=== PATIENT | female | born 1935 | race Caucasian/White ===

== ENCOUNTER 2018-10-16 14:19 | Observation (INO) ==
[2018-10-16] MEDS ORDERED: ACETAMINOPHEN 325 MG TAB PO STA (14:57)
--- NOTE | 2018-10-16 15:11 | Emergency Department Note ---
ED Provider Note CHIEF COMPLAINT: Right foot pain, fall HISTORY OF PRESENT ILLNESS: This 83-year-old femur patient presents to the emergency department, via wheelchair, accompanied by her daughter, complaining of swelling and pain in the right foot at rest and worse with weight bearing. The patient states she slipped in the mud and fell, twisting her right foot in an awkward position. She denies any head injury. She also reports abrasions in the bilateral knees. The patient denies any dizziness, nausea, vomiting, headache, or other symptoms prior to the fall. The patient rates the pain as sharp and 10/10. The patient has taken no medications for relief of the pain. The patient is not able to walk, but has not tried. No numbness or weakness. There is right ankle pain as well. There are no lacerations of the foot. The patient is able to move all of their without pain. No previous fracture to this foot. REVIEW OF SYSTEMS: A 6 system review of systems was completed with positives and pertinent negatives in the HPI. ALLERGIES: Crestor PHYSICAL EXAM: Vital Signs: Reviewed Nurse's notes, vital signs stable. GENERAL : This is an 83-year-old white female, in no acute distress, but appears in pain , well-developed, well-nourished. MUSCULOSKELATAL: There is no visual deformity of the right foot. There is no erythema or ecchymosis. There is no warmth. There is tenderness and swelling over the entire right foot and ankle. There is tenderness of the proximal tib-fib/knee, overlying the abrasion. There is also tenderness of the left knee on palpation. Patient does have full range of motion of the bilateral knees and ankle. There is no tenderness over the plantar fascia. The skin is intact and there are no lacerations or puncture wounds. Dorsalis pedis pulse 2+. Capillary refill less than 2 seconds. RADIOLOGY: XR tibia fibula RT 2V CLINICAL HISTORY: pain, fall COMPARISON: None FINDINGS: No acute fracture of the right tibia or fibula is identified. Talar dome is intact. IMPRESSION: No acute fracture of the right tibia or fibula. Electronically signed by: Andrew Farah M.D. 10/16/2018 3:32 PM XR knee LT 3V CLINICAL HISTORY: pain, fall COMPARISON: None FINDINGS: Alignment of the left knee is anatomic. There is no acute fracture. There is a trace joint effusion. There is moderate arthritis of the lateral compartment with joint space narrowing osteophytosis and sclerosis. There is mild to moderate patellofemoral compartment osteoarthritis. IMPRESSION: 1. No acute fracture. 2. Moderate osteoarthritis of the left knee. Electronically signed by: Andrew Farah M.D. 10/16/2018 3:31 PM XR foot RT min 3V routine CLINICAL HISTORY: pain, fall COMPARISON: None FINDINGS: There is slight lateral displacement of the base of the right second metatarsal with respect to the intermediate cuneiform. Oblique view demonstrates a probable fracture within the base of the third metatarsal as well as cortical irregularity within the base of the second metatarsal which favor fractures. Lateral view demonstrates associated midfoot soft tissue swelling. Moderate arthritis of the right first metatarsophalangeal joint is noted. IMPRESSION: Mild lateral displacement of the base of the right second metatarsal with respect to the intermediate cuneiform and suspected acute fractures of the bases of the second and third metatarsals. These findings raise the possibility of a Lisfranc injury. A CT of the right foot is recommended. Electronically signed by: Andrew Farah M.D. 10/16/2018 3:[address] OF THE RIGHT FOOT WITHOUT CONTRAST CLINICAL HISTORY: ?lis franc, fx on x-ray COMPARISON STUDY: Right foot radiographs performed earlier today. TECHNIQUE: Axial images of the right foot were obtained without IV contrast. Sagittal and coronal reconstructions were viewed. A dose lowering technique was utilized according to ALARA principles. Automated exposure control was utilized. FINDINGS: Alignment of the tibiotalar and subtalar joints is anatomic. There is right midfoot soft tissue swelling. Note is made of acute comminuted mildly displaced fractures of the dorsal aspects of the medial, intermediate and lateral cuneiform bones. In addition, there are acute mildly displaced fractures of the bases of the right second, third and fourth metatarsals. There is 3 mm of lateral displacement of the base of the right second metatarsal with respect to the intermediate cuneiform. In addition, there is an acute Displaced fracture of the dorsal aspect of the cuboid. IMPRESSION: 3 mm of lateral displacement of the base of the right second metatarsal with respect to the intermediate cuneiform and acute mildly displaced fractures of the medial, intermediate and lateral cuneiforms bones, the dorsal cuboid and bases of the right second, third and fourth metatarsals consistent with a Lis Franc fracture/dislocation injury. Electronically signed by: Andrew Farah M.D. 10/16/2018 4:28 PM EMERGENCY DEPARTMENT COURSE: I examined the patient. An X-ray of the left knee, right tib-fib, and right foot was reviewed by myself and radiologist and reveals a probable Lisfranc type of injury. Radiologist did recommend a CT scan at this time. CT scan of the right foot obtained without contrast and does confirm a Lisfranc fracture/dislocation injury. The patient was medicated while here in the ED with Tylenol. Due to the concern regarding the patient's age and ambulatory status, I did speak with the orthopedic surgeon street commissioner. He advised that likely, this patient would require surgery for a fusion in 1-2 weeks when the swelling subsides. He recommended a very bulky Mack splint and admission either to the hospital or rehab for placement until the patient is able to have surgery, as the family does not feel comfortable keeping the patient nonweightbearing at home due to house layout and living situation. I spoke with case management. They advised that I would not be able to get the patient placed into a rehab today, and that she would require admission. I did speak with the hospitalist. They recommended obtaining an IV and basic labs for admission, but were agreeable to evaluate the patient and admit for placement possibly tomorrow. I spoke with ARAMIS Fan. Please see her dictation regarding ongoing management of this patient. The patient was placed in a bulky posterior leg with a stirrup Ortho-Glass splint. The patient will be admitted to the floor nonweightbearing on the right lower extremity. Please see hospitalist dictation regarding ongoing management care. I attest that I have personally reviewed the patient's current medication list. Patient was found to have normal blood pressure on screening and does not require follow-up. Etiologies such as soft tissue injury, fracture, dislocation, neurovascular compromise, compartment syndrome, as well as others were entertained. DIAGNOSIS: Lisfranc fracture of the right foot, bilateral knee contusions, mechanical fall The chart was completed utilizing xzoops voice recognition software. Grammatical errors, random word insertions, pronoun errors, and incomplete sentences are an occasional consequence of this system due to software limitations, ambient noise, and hardware issues. Any formal questions or concerns about the content, text, or information contained within the body of this dictation should be directly addressed to the provider for clarification. Impression & Plan Lisfranc fracture, Contusion of knee and lower leg, Fall from slipping on mud Past Med/Surg History Medical History Lisfranc fracture Osteoarthritis Vertigo GERD (gastroesophageal reflux disease) Hypothyroidism (Chronic) Social History Feels Safe at Home: Yes Smoking Status: Never smoker Results & Data Vital Signs Vital Signs - 24 hr 10/16/18 14:29 10/16/18 16:05 10/16/18 17:33 Temperature 36.8 C Temperature Source Oral Sepsis Recent Fever Within 48 Hours No Sepsis New/Unexplained Change in Mental Status No Sepsis Action Taken by Nursing No Action Required Pulse Rate 86 Pulse Rate [Finger] 89 87 Respiratory Rate 20 18 18 Blood Pressure 189/109 H Blood Pressure [Left Arm] 174/111 H 195/100 H Blood Pressure Mean 135 Blood Pressure Mean [Left Arm] 132 131 Pulse Oximetry 95 98 98 Oxygen Delivery Method Room Air Room Air Room Air Laboratory Data Result diagrams: 10/16/18 17:20 10/16/18 17:20 Lab Results 10/16/18 10/16/18 Range/Units 17:20 17:20 WBC 10.51 (4.8-10.8) K/uL RBC 3.76 L (4.2-5.4) M/uL Hgb 12.2 (12.0-16.0) g/dL Hct 37.9 (37-47) % MCV 100.8 H (80-100) fL MCH 32.4 (25-34) pg MCHC 32.2 (32-36) g/dL RDW Std Deviation 47.3 H (36.4-46.3) fL RDW Coeff of Alea 12.9 (11.5-14.5) % Plt Count 191 (130-400) K/uL MPV 9.7 (7.4-10.4) fL Immature Gran % (Auto) 0.3 % Neut % (Auto) 68.5 % Lymph % (Auto) 17.8 % [place] % (Auto) 11.1 % Eos % (Auto) 2.0 % Baso % (Auto) 0.3 % Immature Gran # (Auto) 0.03 H (0.00-0.02) K/uL Neut # (Auto) 7.20 H (1.4-6.5) K/uL Lymph # (Auto) 1.87 (1.2-3.4) K/uL [place] # (Auto) 1.17 H (0.11-0.59) K/uL Eos # (Auto) 0.21 (0-0.5) K/uL Baso # (Auto) 0.03 (0-0.2) K/uL Sodium 141 (136-145) mmol/L Potassium 4.2 (3.5-5.1) mmol/L Chloride 107 (98-107) mmol/L Carbon Dioxide 28 (21-32) mmol/L Anion Gap 6.0 (3-11) BUN 20 H (7-18) mg/dl Creatinine 0.93 (0.6-1.2) mg/dl Est Cr Clr Drug Dosing 49.9 ml/min Est GFR ( Amer) 66.3 Est GFR (Non-Af Amer) 57.2 BUN/Creatinine Ratio 21.2 H (10-20) Glucose 99 (70-99) mg/dl Calcium 8.9 (8.5-10.1) mg/dl Administered Medications Discontinued Medications Acetaminophen (Tylenol) 650 mg PO NOW STA Stop: 10/16/18 14:58 Last Admin: 10/16/18 15:58 Dose: 325 mg Discharge Plan Visit Data Chief Complaint: Fall Stated Complaint: FELL, HURT RT FOOT AND B/L KNEES ED Provider: Henrik Lagos ED Midlevel Provider: Kiki Crabtree Discharge Problem: Lisfranc fracture, Contusion of knee and lower leg, Fall from slipping on mud Patient Disposition: Still a Patient Condition: Good
--- NOTE | 2018-10-16 15:32 | XRay Report ---
XR knee LT 3V CLINICAL HISTORY: pain, fall COMPARISON: None FINDINGS: Alignment of the left knee is anatomic. There is no acute fracture. There is a trace joint effusion. There is moderate arthritis of the lateral compartment with joint space narrowing osteophy tosis and sclerosis. There is mild to moderate patellofemoral compartment osteoarthritis. IMPRESSION: 1. No acute fracture. 2. Moderate osteoarthritis of the left knee. Electronically signed by: Andrew Farah M.D. 10/16/2018 3:31 PM
--- NOTE | 2018-10-16 15:33 | XRay Report ---
XR tibia fibula RT 2V CLINICAL HISTORY: pain, fall COMPARISON: None FINDINGS: No acute fracture of the right tibia or fibula is identified. Talar dome is intact. IMPRESSION: No acute fracture of the right tibia or fibula. Electronically signed by: Andrew Farah M.D. 10/16/2018 3:32 PM
--- NOTE | 2018-10-16 15:36 | XRay Report ---
XR foot RT min 3V routine CLINICAL HISTORY: pain, fall COMPARISON: None FINDINGS: There is slight lateral displacement of the base of the right second metatarsal with respe ct to the intermediate cuneiform. Oblique view demonstrates a probable fracture within the base of th e third metatarsal as well as cortical irregularity within the base of the second metatarsal which fa vor fractures. Lateral view demonstrates associated midfoot soft tissue swelling. Moderate arthritis of the right first metatarsophalangeal joint is noted. IMPRESSION: Mild lateral displacement of the base of the right second metatarsal with respect to the intermediate cuneiform and suspected acute fractures of the bases of the second and third metatarsals . These findings raise the possibility of a Lisfranc injury. A CT of the right foot is recommended. Electronically signed by: Andrew Farah M.D. 10/16/2018 3:35 PM
--- NOTE | 2018-10-16 16:30 | CT Scan Report ---
CT OF THE RIGHT FOOT WITHOUT CONTRAST CLINICAL HISTORY: ?gabrielle schmitz, fx on x-ray COMPARISON STUDY: Right foot radiographs performed earlier today. TECHNIQUE: Axial images of the right foot were obtained without IV contrast. Sagittal and coronal rec onstructions were viewed. A dose lowering technique was utilized according to ALARA principles. Autom ated exposure control was utilized. FINDINGS: Alignment of the tibiotalar and subtalar joints is anatomic. There is right midfoot soft ti ssue swelling. Note is made of acute comminuted mildly displaced fractures of the dorsal aspects of t he medial, intermediate and lateral cuneiform bones. In addition, there are acute mildly displaced fr actures of the bases of the right second, third and fourth metatarsals. There is 3 mm of lateral disp lacement of the base of the right second metatarsal with respect to the intermediate cuneiform. In ad dition, there is an acute Displaced fracture of the dorsal aspect of the cuboid. IMPRESSION: 3 mm of lateral displacement of the base of the right second metatarsal with respect to the intermediate cuneiform and acute mildly displaced fractures of the medial, intermediate and later al cuneiforms bones, the dorsal cuboid and bases of the right second, third and fourth metatarsals co nsistent with a Gabrielle Chalino fracture/dislocation injury. Electronically signed by: Andrew Farah M.D. 10/16/2018 4:28 PM
[2018-10-16 17:38] LABS: Basophils # (auto) 0.03 K/uL (0-0.2); Basophils % (auto) 0.3 %; Eosinophils # (auto) 0.21 K/uL (0-0.5); Hematocrit (blood only) 37.9 % (37-47); Hemoglobin 12.2 g/dL (12.0-16.0); Immature Granulocytes # (auto) 0.03 K/uL (0.00-0.02); Immature Granulocytes % (auto) 0.3 %; Lymphocytes # (auto) 1.87 K/uL (1.2-3.4); Lymphocytes % (auto) 17.8 %; Mean Corpuscular Hgb Conc 32.2 g/dL (32-36); Mean Corpuscular Volume 100.8 fL (80-100); Mean Platelet Volume 9.7 fL (7.4-10.4); Monocytes # (auto) 1.17 K/uL (0.11-0.59); Monocytes % (auto) 11.1 %; Neutrophils % (auto) 68.5 %; Platelet Count 191 K/uL (130-400); RDW Coefficient of Variation 12.9 % (11.5-14.5); RDW Standard Deviation 47.3 fL (36.4-46.3); Red Blood Count 3.76 M/uL (4.2-5.4); White Blood Count 10.51 K/uL (4.8-10.8)
[2018-10-16 17:55] LABS: BUN Creatinine Ratio 21.2 (10-20); Calcium 8.9 mg/dl (8.5-10.1); Creatinine Clr Calc Pharmacy 49.9 ml/min; Est GFR (African American) 66.3; Est GFR (Non-African American) 57.2; Potassium 4.2 mmol/L (3.5-5.1)
[2018-10-16] MEDS ORDERED: ALBUTEROL HFA 8 GM INHALER INH PRN (18:04)
--- NOTE | 2018-10-16 18:18 | History & Physical Report ---
Date of Service October 16, 2018 Assessment & Plan (1) Foot fracture, right: (2) Hypertension: (3) Hypothyroidism: (4) HLD (hyperlipidemia): (5) GERD (gastroesophageal reflux disease): (6) Osteoarthritis: (7) Vertigo: (8) DVT prophylaxis: History of Present Illness Primary Care Provider: Nancy Mackey 83 yo female c PMH HTN, GERD, Hypothyroidism, Osteoarthritis, Vertigo, Hard of Hearing, and HLD was getting out of orthodox van and planted her Right Foot in mud and slipped sustaining and R Lis Franc Fracture. She will be casted, ortho or podiatry to see, NWB, Acute rehab eval. Assessment and Plan R Foot Lis Ochoa Fracture HTN GERD HLD Vertigo OA Hypothyroid She will be casted, ortho or podiatry to see, NWB, Acute rehab eval. Continue outpatient meds, ATC tylenol, Oxy IR, IV Morphine. Treat BP if pain control doesn't bring it down. ROS-No Headache, No Visual Changes, No Nausea, No Vomiting, No Fever, No Chills , No Neck Pain or Stiffness, No Chest Pain, No Palpitations, No SOB, No PINEDO, No Cough, No Sputum, No Wheezing, No Abdominal Pain, No Diarrhea, No Hematemesis, No Hemoptysis, No Unexpected Weight Loss, No Flank pain, No Melena, No Hematochezia, No Frequency, No Urgency, No Burning, No Hematuria, No Rashes, No Diaphoresis. Appetite is Normal, R Foot pain and swelling Physical Exam Gen-AAO x 3, NAD, Afebrile, [place]-NCAT, EOMI, PERRLA, Anicteric Sclera, No Posterior Pharyngeal Erythema Neck-Supple, No JVD, No Thyromegaly, No Masses, No LAD, No Bruits Lungs-Clear to Auscultation Bilaterally, No Rales, No Rhonchi, No Wheezing, No Crepitus Chest-No S4, +S1, +S2, No S3, No Murmurs, No Rubs, No Gallops, No Ectopy Abdomen-Soft, Bowel Sounds Present, Non Tender, Non Distended, No Hepatomegaly, No Splenomegaly, No Palpable Masses, No Rebound, No Rigidity, No Guarding Musculoskeletal-Full Range of Motion Bilaterally, No CVAT Extremities-No Cyanosis, No Clubbing, +Edema R Foot Nuero-Cranial Nerves II-XII grossly intact, Motor WNL, DTRs WNL, Strength WNL, Non Focal Psych-Normal Mood PMH-HTN, GERD, Hypothyroidism, Osteoarthritis, Vertigo, Hard of Hearing, and HLD PSH-Hernia repair R Inguinal, Cataract Soc-No Tob/Etoh, , Lives c Son, Housewife FH-M of Sepsis at 91, F of Lung [place], [place], 15 Brothers and sisters ( No MIs, CVAs, or Cancer, 1 Son healthy, 2 Daughters, 1 c DM, other 2 healthy. Allergies rosuvastatin Allergy (Severe, Verified 10/16/18 15:38) ITCHY Height/Weight/Isolation Height 5 ft 7 in Weight 77 kg Chemistry 10/16/18 17:20 Sodium 141 Potassium 4.2 Chloride 107 Carbon Dioxide 28 Anion Gap 6.0 BUN 20 H Creatinine 0.[address] Foot-IMPRESSION: 3 mm of lateral displacement of the base of the right second metatarsal with respect to the intermediate cuneiform and acute mildly displaced fractures of the medial, intermediate and lateral cuneiforms bones, the dorsal cuboid and bases of the right second, third and fourth metatarsals consistent with a Lis Franc fracture/dislocation injury. IMPRESSION: No acute fracture of the right tibia or fibula IMPRESSION: 1. No acute fracture. 2. Moderate osteoarthritis of the left knee. Foot XR-IMPRESSION: Mild lateral displacement of the base of the right second metatarsal with respect to the intermediate cuneiform and suspected acute fractures of the bases of the second and third metatarsals. These findings raise the possibility of a Lis Franc injury. A CT of the right foot is recommended. Allergies Allergy/AdvReac Type Severity Reaction Status Date / Time rosuvastatin Allergy Severe ITCHY Verified 10/16/18 15:38 Home Medications Home Medications Medication Instructions Recorded Confirmed Type albuterol sulfate [Ventolin HFA] 2 puff INHALATION UD PRN 10/16/18 10/16/18 History levothyroxine 50 mcg PO DAILY 10/16/18 10/16/18 History lisinopril 5 mg PO DAILY 10/16/18 10/16/18 History meclizine 25 mg PO Q8H PRN 10/16/18 10/16/18 History omeprazole 20 mg PO DAILY 10/16/18 10/16/18 History Past Med/Surg History Social History Feels Safe at Home: Yes Smoking Status: Never smoker Physical Exam 2 Vital Signs (Past 24 Hours): Last Vital Signs Temp 36.8 C 10/16/18 14:29 Pulse 87 10/16/18 17:33 Resp 18 10/16/18 17:33 BP 195/100 H 10/16/18 17:33 Pulse Ox 98 10/16/18 17:33
--- NOTE | 2018-10-16 19:05 | Emergency Department Note ---
Entered by Shane Acosta acting as a scribe for Henrik Lagos MD ED Visit Note The patient was seen and examined by myself in conjunction with Kiki Nguyễn. I agree with the history, physical and findings as documented. Please see the note for disposition and details. . The scribe's documentation has been prepared under my direction and personally reviewed by me in its entirety. I confirm that the note above accurately reflects all work, treatment, procedures, and medical decision making performed by me.
[2018-10-16] MEDS ORDERED: MoRPHine SULFATE 4 MG/ML 1 ML CARP\\VIAL IV PRN (19:21)
[2018-10-16] MEDS ORDERED: OXYCODONE HCL IR 5 MG TAB (IMMEDIATE RELEASE) PO PRN (19:21)
[2018-10-16] MEDS ORDERED: MECLIZINE HCL 25 MG TAB PO PRN (19:21)
[2018-10-16] MEDS ORDERED: ONDANSETRON INJ 2 MG/ML 2 ML VIAL IV PRN (19:21)
[2018-10-16] MEDS ORDERED: POLYETHYLENE (MIRALAX) 17 GM PACK PO PRN (19:21)
[2018-10-16] MEDS: PANTOprazole 40 MG TAB PO SCH (19:58)
[2018-10-16] MEDS: LISINOPRIL 5 MG TAB PO SCH (19:58)
[2018-10-16] MEDS: ACETAMINOPHEN 500 MG TAB PO SCH (19:59)
[2018-10-16 20:00] LABS: INR 1.1 (0.9-1.1); Partial Thromboplastin Time 26.6 Seconds (21.0-31.0); Prothrombin Time 11.3 Seconds (9.0-12.0)
[2018-10-16] MEDS: HydrALAZINE HCL 20 MG/ML VIAL IV PRN (23:37)
[2018-10-17] MEDS: HEPARIN SOD 5,000 UNIT/0.5 ML VIAL SQ SCH ×3 (00:22→21:37)
[2018-10-17] MEDS: LEVOTHYROXINE SODIUM 50 MCG TABLET PO SCH (05:34)
[2018-10-17 06:27] LABS: Hematocrit (blood only) 37.3 % (37-47); Hemoglobin 12.3 g/dL (12.0-16.0); Mean Corpuscular Volume 99.7 fL (80-100); Mean Platelet Volume 9.5 fL (7.4-10.4); Platelet Count 186 K/uL (130-400); RDW Coefficient of Variation 12.9 % (11.5-14.5); Red Blood Count 3.74 M/uL (4.2-5.4); White Blood Count 7.27 K/uL (4.8-10.8)
[2018-10-17 06:56] LABS: BUN Creatinine Ratio 18.6 (10-20); Calcium 8.5 mg/dl (8.5-10.1); Creatinine Clr Calc Pharmacy 60.6 ml/min; Est GFR (African American) 71.9; Potassium 3.6 mmol/L (3.5-5.1)
[2018-10-17] MEDS: ACETAMINOPHEN 500 MG TAB PO SCH ×4 (08:07→21:37)
[2018-10-17] MEDS: LISINOPRIL 5 MG TAB PO SCH (08:08)
[2018-10-17] MEDS: PANTOprazole 40 MG TAB PO SCH (08:08)
[2018-10-17] MEDS: HydrALAZINE HCL 20 MG/ML VIAL IV PRN (08:09)
--- NOTE | 2018-10-17 10:29 | Anesthesiology Consultation ---
Date of Service October 17, 2018 Assessment & Plan Chart Review Chart Review: Acceptable Risk for Surgery and Patient NOT seen in Pre Admission Testing Will order a preop EKG. Consults Requested none History Surgery Operation Date: 10/17/18 07:00 Proposed Procedures p Closed Reduction Possible Open Reduction Mid Foot Fracture Right - Shyla E HOLLY Vivar Height/Weight Height: 80 ft 6 in Weight: 77 kg Allergies Allergy/AdvReac Type Severity Reaction Status Date / Time rosuvastatin Allergy Severe ITCHY Verified 10/16/18 15:38 Medications Home Medications Medication Instructions Recorded Confirmed Last Taken albuterol sulfate [Ventolin HFA] 2 puff INHALATION UD PRN 10/16/18 10/16/18 Unknown levothyroxine 50 mcg PO DAILY 10/16/18 10/16/18 Unknown lisinopril 5 mg PO DAILY 10/16/18 10/16/18 Unknown meclizine 25 mg PO Q8H PRN 10/16/18 10/16/18 Unknown omeprazole 20 mg PO DAILY 10/16/18 10/16/18 Unknown Active Medications Generic Name Dose Route Start Last Admin Trade Name Freq PRN Reason Stop Dose Admin Acetaminophen 500 mg 10/16/18 20:00 10/17/18 08:07 Tylenol PO 11/15/18 19:59 500 mg Q4HWA ALENA Administration Heparin Sodium (Porcine) 5,000 units 10/16/18 21:00 10/17/18 08:07 Heparin Sodium (Porcine) SQ 11/15/18 20:59 Not Given Q12 ALENA Hydralazine HCl 5 mg 10/16/18 20:45 10/17/18 08:09 Hydralazine Hcl IV 11/15/18 20:44 5 mg Q6H PRN Administration Hypertension Levothyroxine Sodium 50 mcg 10/17/18 06:30 10/17/18 05:34 Synthroid PO 11/16/18 06:29 50 mcg DAILYBB ALENA Administration Lisinopril 5 mg 10/16/18 19:21 10/17/18 08:08 Zestril PO 11/15/18 19:20 5 mg DAILY ALENA Administration Pantoprazole Sodium 40 mg 10/16/18 19:30 10/17/18 08:08 Protonix PO 11/15/18 19:29 40 mg DAILY ALENA Administration Past Medical History Medical History Lisfranc fracture Osteoarthritis Vertigo GERD (gastroesophageal reflux disease) Hypothyroidism (Chronic) Past Surgical History Surgical History History of cataract surgery Hx of inguinal hernia surgery Social History Smoking Status: Former smoker Hx Alcohol Use: No Hx Substance Use: No Physical Exam Vital Signs Last Vital Signs Temp 36.8 C 10/17/18 07:45 Pulse 92 H 10/17/18 07:45 Resp 20 10/17/18 07:45 BP 165/90 H 10/17/18 08:12 Pulse Ox 94 10/17/18 07:45 Testing Electrocardiogram EKG 08/06/2017: Sinus bradycardia Nonspecific T wave abnormality Abnormal ECG When compared with ECG of 05-AUG-2017 11:26, Nonspecific T wave abnormality, worse in Lateral leads Confirmed by Piotr Barnes ([id number]) on 08/06/2017 3:34:26 PM Echocardiogram Date: 08/06/17 STRESS STUDY: Normal pharmacologic stress echocardiogram. No echocardiographic or ECG evidence of myocardial ischemia having achieved heart rate adequate for diagnostic purposes. -- Conclusions -- STRESS STUDY: Normal pharmacologic stress echocardiogram. No echocardiographic evidence of myocardial ischemia having achieved heart rate adequate for diagnostic purposes. Mild equivocal stress EKG changes were noted as described below. No symptoms suggestive of angina were induced. The heart rate and BP responses to pharmacologic stress were appropriate. Laboratory Results 10/17/18 06:16 10/17/18 06:16 PT 11.3 Seconds (9.0-12.0) 10/16/18 17:20 INR 1.1 (0.9-1.1) 10/16/18 17:20 APTT 26.6 Seconds (21.0-31.0) 10/16/18 17:20
--- NOTE | 2018-10-17 11:11 | Consultation Report ---
DATE OF CONSULTATION: 10/17/2018 HISTORY OF PRESENT ILLNESS: An 83-year-old female is seen at bedside at the request of the hospitalist. The patient notes on Wednesday while getting out of a hoahaoism van, when she planted her right foot, she got stuck in the mud and slipped. She had instant pain in the right foot and knees secondary to the fall and was seen at [facility] ER. The patient was admitted due to a Lisfranc joint fracture of her right foot. She notes her pain is focal on the mid foot on the right, currently resting comfortably in bed and is nonambulatory on the right side. PAST SURGICAL HISTORY: Hernia. PAST MEDICAL HISTORY: Hypertension, GERD, hypothyroid, osteoarthritis, vertigo. MEDICATIONS: Per chart. ALLERGIES: CRESTOR. SOCIAL HISTORY: She currently lives with her son and is . PHYSICAL EXAMINATION: VITAL SIGNS: Afebrile. LOWER EXTREMITY VASCULAR: Digital cap refill is immediate. Digits are swollen with ecchymosis noted dorsally. DERMATOLOGIC: The right foot is currently bandaged, in a cast. NEUROLOGICAL: Sensation of distal toes intact per [place] monofilament. MUSCULOSKELETAL: Pain precludes reliable exam. IMAGING: CT scan shows a 3 mm lateral displacement of the right second metatarsal. It also shows a dorsal displacement of the cuboid and fractures involving the entire mid foot. IMPRESSION: Multiple mid foot fractures, right secondary to fall with dislocation of Lisfranc joint. TREATMENT: Reviewed conservative treatment options; however, due to displacement, I recommended closed reduction with period of nonweightbearing over casting and immobilization. The patient has a few comorbidities other than her age and is quite active with her hoahaoism. The patient is amenable to closed, possible open, reduction. Reviewed procedures, risks and complication for closed, possible open, reduction with pinning of multiple mid foot fractures, Lisfranc joint on the right. This will be performed under general anesthesia as an inpatient at the hospital. Procedure, risks and complications were fully reviewed with the patient. Consent form was signed and all of the patient's questions were answered. Complications were discussed in detail with the patient including pain, infection, swelling that may not be excessive, pins and needles feeling, numbness, metatarsalgia, excessive bleeding, delay or nonhealing bone, delay or nonhealing of skin, enlarged scar, failure of the procedure, reoccurrence or worsening condition, which may not require further surgery, adverse reaction to anesthesia, allergic reaction to suture or other implant material, loss of toe, foot, or leg, flail toe, stiff toe, short toe, elevated toe, transfer lesion or callus, peripheral nerve complications such as phlebitis, damage to nerves or vascular structures. The patient will be required to be nonweightbearing for 8-12 weeks followed by weightbearing cast immobilization and there is a high degree that she may need a fusion in the future, most likely will need orthotics and/or AFO for a lifetime due to the severe nature of the trauma with or without surgery. This was reviewed at length. The patient stated she understood, consent form was signed. This was witnessed by nursing staff at bedside. Verbal instructions, postop instructions were given. Recommended admission to a long-term care facility due to difficulty staying nonweightbearing postoperatively. We will consult geriatric social work professor for this. 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 for repair of right midfoot fractures.
--- NOTE | 2018-10-17 11:43 | Hospitalist Progress Note ---
Date of Service October 17, 2018 Assessment & Plan (1) Foot fracture, right: (2) Hypertension: (3) Hypothyroidism: (4) HLD (hyperlipidemia): (5) GERD (gastroesophageal reflux disease): (6) Osteoarthritis: (7) Vertigo: (8) DVT prophylaxis: Subjective 83 yo female c PMH HTN, GERD, Hypothyroidism, Osteoarthritis, Vertigo, Hard of Hearing, and HLD was getting out of uats[employer] van and planted her Right Foot in mud and slipped sustaining and R Lis Franc Fracture. She will be casted, ortho or podiatry to see, NWB, Acute rehab eval. Assessment and Plan R Foot Lis Ochoa Fracture HTN GERD HLD Vertigo OA Hypothyroid Podiatry taking to OR today, SNF on DC ROS-No Headache, No Visual Changes, No Nausea, No Vomiting, No Fever, No Chills , No Neck Pain or Stiffness, No Chest Pain, No Palpitations, No SOB, No PINEDO, No Cough, No Sputum, No Wheezing, No Abdominal Pain, No Diarrhea, No Hematemesis, No Hemoptysis, No Unexpected Weight Loss, No Flank pain, No Melena, No Hematochezia, No Frequency, No Urgency, No Burning, No Hematuria, No Rashes, No Diaphoresis. Appetite is Normal, R Foot sore Physical Exam Gen-AAO x 3, NAD, Afebrile, Pleasant Head-NCAT, EOMI, PERRLA, Anicteric Sclera, No Posterior Pharyngeal Erythema Neck-Supple, No JVD, No Thyromegaly, No Masses, No LAD, No Bruits Lungs-Clear to Auscultation Bilaterally, No Rales, No Rhonchi, No Wheezing, No Crepitus Chest-No S4, +S1, +S2, No S3, No Murmurs, No Rubs, No Gallops, No Ectopy Abdomen-Soft, Bowel Sounds Present, Non Tender, Non Distended, No Hepatomegaly, No Splenomegaly, No Palpable Masses, No Rebound, No Rigidity, No Guarding Musculoskeletal-Full Range of Motion Bilaterally, No CVAT Extremities-No Cyanosis, No Clubbing, R foot Casted Nuero-Cranial Nerves II-XII grossly intact, Motor WNL, DTRs WNL, Strength WNL, Non Focal Psych-Normal Mood Physical Exam 2 Vital Signs (Past 24 Hours): Last Vital Signs Temp 36.8 C 10/17/18 07:45 Pulse 92 H 10/17/18 07:45 Resp 20 10/17/18 07:45 BP 137/81 10/17/18 11:06 Pulse Ox 94 10/17/18 07:45 Results & Data Laboratory Results Current Diagnoses Hypothyroidism, unspecified (10/16/18) Hyperlipidemia, unspecified (10/16/18) Essential (primary) hypertension (10/16/18) Gastro-esophageal reflux disease without esophagitis (10/16/18) Unspecified osteoarthritis, unspecified site (10/16/18) Dizziness and giddiness (10/16/18) Unspecified fracture of right foot, initial encounter for closed fracture (10/16) Allergies rosuvastatin Allergy (Severe, Verified 10/16/18 15:38) ITCHY Height/Weight/Isolation Height 80 ft 6 in Weight 77 kg Chemistry 10/16/18 10/17/18 17:20 06:16 Sodium 141 139 Potassium 4.2 3.6 Chloride 107 106 Carbon Dioxide 28 27 Anion Gap 6.0 6.0 BUN 20 H 16 Creatinine 0.93 0.87 Glucose 99 103 H
[2018-10-17] MEDS ORDERED: fentaNYL citrate 100 MCG/2 ML VIAL ONE (14:17)
[2018-10-17] MEDS ORDERED: MIDAZOLAM HCL 1 MG/ML 2ML VIAL ONE (14:17)
[2018-10-17] MEDS ORDERED: BACITRACIN OINT 15 GM TUBE ONE (15:19)
[2018-10-17] MEDS ORDERED: DEXAMETHASONE SOD INJ 4 MG/ML VIAL ONE ×2 (15:19→17:10)
[2018-10-17] MEDS ORDERED: ROPIVACAINE 0.5% 5 MG/ML 30 ML VIAL ONE (16:24)
[2018-10-17] MEDS ORDERED: fentaNYL citrate 100 MCG/2 ML VIAL IV PRN (16:26)
[2018-10-17] MEDS ORDERED: ATROPINE SULFATE 0.1 MG/ML 10ML SYR IV PRN (16:26)
[2018-10-17] MEDS ORDERED: ePHEDrine sulfate 50 MG/ML AMP IV PRN (16:26)
[2018-10-17] MEDS ORDERED: ONDANSETRON INJ 2 MG/ML 2 ML VIAL IV PRN (16:26)
[2018-10-17] MEDS ORDERED: CEFAZOLIN 2,000 MG/15 ML IV PUSH IV ONE (16:41)
[2018-10-17] MEDS ORDERED: ePHEDrine sulfate 50 MG/ML SYR ONE (17:10)
[2018-10-17] MEDS ORDERED: PHENYLEPHRINE 100MCG/ML 5ML SYR ONE (17:10)
[2018-10-17] MEDS ORDERED: PROPOFOL IV EMULSION 10 MG/ML 20 ML VIAL IV ONE (17:10)
[2018-10-17] MEDS ORDERED: LIDOCAINE HCL 2% 2 ML VIAL/AMP(20MG/ML) INFIL ONE (17:10)
[2018-10-17] MEDS ORDERED: ONDANSETRON INJ 2 MG/ML 2 ML VIAL ONE (17:10)
--- NOTE | 2018-10-17 18:49 | Operative Report ---
Post Operative Report Pre & Post Diagnosis Operation Date: 10/17/18 07:00 Pre-Op Diagnosis: Multiple mid foot fractures, right Post-Op Diagnosis: Multiple mid foot fractures, right Procedure Operation Date: 10/17/18 07:00 Actual Procedures p Closed Reduction and pinning of Mid Foot Fracture Right(Right) - Shyla Vivar DPM Surgeon Shyla Vivar DPM Lock Operator Dr. Soham Avendaño Estimated Blood Loss 0 Findings Consistent with Post-Op Diagnosis Specimens none Description of Procedure Closed reduction multiple midfoot fractures with relocation Lis Franc joint Right I attest to the content of the Intraoperative Record and any orders documented therein. Any exceptions are noted below.
--- NOTE | 2018-10-17 18:56 | Fluoroscopy Report ---
INTRAOPERATIVE RADIOGRAPHS CLINICAL HISTORY: Foot surgery. Fluoroscopy time: 45 seconds. FINDINGS: 7 spot fluoroscopic views of the right forefoot are correlated with radiographs dated 2018. 4 pins have been placed within the midfoot these transfix the first and second tarsometatarsal joints, the fifth tarsometatarsal joint, and the distal tarsal row. The orthopedic hardware appears i ntact. IMPRESSION: Postoperative changes as above. See operative report for detailed findings. Electronically signed by: Osvaldo Cruz M.D. 10/17/2018 6:54 PM
--- NOTE | 2018-10-17 19:29 | Anesthesiology Progress Note ---
Date of Service October 17, 2018 Anesthesia Post Procedure Vital Signs Vital Signs: Temp Pulse Pulse Resp BP BP Pulse Ox 10/17/18 19:25 36.4 C L 82 16 132/71 96 10/17/18 19:15 79 16 140/65 98 10/17/18 19:05 76 16 146/73 H 98 10/17/18 18:55 75 16 134/63 98 10/17/18 18:49 36.3 C L 85 16 154/64 H 97 10/17/18 16:14 37.2 C 98 H 16 166/91 H 93 10/17/18 15:07 37.0 C 95 H 18 159/75 H 92 10/17/18 12:00 36.8 C 86 19 158/90 H 94 10/17/18 11:06 137/81 10/17/18 08:12 165/90 H 10/17/18 07:45 36.8 C 92 H 20 182/106 H 94 10/17/18 00:21 167/82 H 10/16/18 23:25 36.9 C 75 16 195/84 H 200/91 H 91 10/16/18 21:37 76 159/87 H 10/16/18 20:45 75 185/104 H 10/16/18 20:35 84 185/102 H 10/16/18 19:45 36.9 C 82 16 182/90 H 94 Pain Intensity Right Lower Leg: Pain Intensity: 5 Notes Mental Status: alert / awake / arousable Patient Amnestic to Procedure: Yes Nausea / Vomiting: adequately controlled Pain: adequately controlled Airway Patency, RR, SpO2: stable & adequate BP & HR: stable & adequate Hydration State: stable & adequate Anesthetic Complications: no major complications apparent
[2018-10-18] MEDS: LEVOTHYROXINE SODIUM 50 MCG TABLET PO SCH (05:22)
[2018-10-18 07:09] LABS: Hematocrit (blood only) 35.6 % (37-47); Hemoglobin 11.6 g/dL (12.0-16.0); Mean Corpuscular Hgb Conc 32.6 g/dL (32-36); Mean Corpuscular Volume 100.3 fL (80-100); Mean Platelet Volume 9.9 fL (7.4-10.4); Platelet Count 185 K/uL (130-400); RDW Coefficient of Variation 12.9 % (11.5-14.5); RDW Standard Deviation 47.7 fL (36.4-46.3); Red Blood Count 3.55 M/uL (4.2-5.4); White Blood Count 7.88 K/uL (4.8-10.8)
[2018-10-18 07:42] LABS: BUN Creatinine Ratio 19.7 (10-20); Calcium 8.4 mg/dl (8.5-10.1); Creatinine Clr Calc Pharmacy 46.9 ml/min; Est GFR (African American) 61.5; Est GFR (Non-African American) 53.1
--- NOTE | 2018-10-18 08:08 | Operative Report ---
DATE OF OPERATION: 10/17/2018 SURGEON: Shyla Vivar DPM MORTGAGE LOAN COMPUTATION CLERK: Soham Avendaño DPM PREOPERATIVE DIAGNOSES: 1. Lisfranc's joint with dislocation, right. 2. Multiple mid foot fractures with displacement, right foot. 3. History of injury 10/16/2018 right foot. POSTOPERATIVE DIAGNOSES: 1. Lisfranc's joint with dislocation, right. 2. Multiple mid foot fractures with displacement, right foot. 3. History of injury 10/16/2018 right foot. ANESTHESIA: General with regional field block. PROCEDURES: 1. Closed reduction multiple mid foot fractures of the right 2nd, 3rd, 4th, and cuboid tarsometatarsal joints. 2. Reduction Lisfranc joint, right foot. HEMOSTASIS: None. MATERIALS: 2.0 Steinmann pins x4. CONDITION: The patient tolerated the procedure and anesthesia well without complications, transferred to recovery room with vital signs stable and neurovascular status intact. DESCRIPTION OF PROCEDURE: The patient was brought to the OR and placed on the OR table in supine position. Upon completion of general anesthesia and regional field block by the anesthesia department, the right extremity was scrubbed, prepped, and draped in the usual aseptic fashion. Attention was directed to the right foot. There was placed in finger traps. The extremity was scrubbed, prepped and draped in the usual aseptic fashion after well-padded tourniquet was then placed. Arterial Doppler was placed over the mid foot to outline the dorsalis pedis pulse. This was avoided during the pinning cycle. Pedal pulses were difficult to palpate due to the amount of edema and ecchymosis secondary to the fracture swelling that was present. At this time, the second metatarsal was reduced while it was in the finger traps and a 2.0 Steinmann pin was taken from the second metatarsal into the medial cuneiform. This was reduced. First metatarsal medial cuneiform and the fifth were also reduced reducing the fractures of the second, third, fourth and in good anatomic alignment. The tarsal joints were also relocated with a Steinmann pin running from medial to lateral. All neurovascular structures were preserved Dr. Avendaño was present throughout the procedure to assist. The tourniquet was then placed; however, not inflated throughout the case. A dry sterile compressive dressing consisting of Xeroform, 4 x 4s, Betadine ointment over the pin sites, Webril, and a well-padded BK splint were applied to the right lower extremity. The patient tolerated the procedure and anesthesia well without complications. The patient was transferred to recovery room with vital signs stable and neurovascular status intact. I attest to the content of the Intraoperative Record and any orders documented therein. Any exception s are noted below.
--- NOTE | 2018-10-18 08:49 | Anesthesiology Progress Note ---
Date of Service October 18, 2018 Anesthesia Post Procedure Vital Signs Vital Signs: Temp Pulse Pulse Resp BP BP Pulse Ox 10/18/18 06:51 36.5 C 77 18 126/73 93 10/18/18 04:00 36.4 C L 76 17 134/74 93 10/17/18 22:38 36.4 C L 85 18 146/74 H 92 10/17/18 21:30 36.7 C 86 18 119/71 97 10/17/18 20:31 36.5 C 89 18 124/70 94 10/17/18 20:00 36.4 C L 85 20 153/89 H 96 10/17/18 19:30 36.7 C 79 18 149/79 H 97 10/17/18 19:25 36.4 C L 82 16 132/71 96 10/17/18 19:15 79 16 140/65 98 10/17/18 19:05 76 16 146/73 H 98 10/17/18 18:55 75 16 134/63 98 10/17/18 18:49 36.3 C L 85 16 154/64 H 97 10/17/18 16:14 37.2 C 98 H 16 166/91 H 93 10/17/18 15:07 37.0 C 95 H 18 159/75 H 92 10/17/18 12:00 36.8 C 86 19 158/90 H 94 10/17/18 11:06 137/81 Notes Mental Status: alert / awake / arousable and participated in evaluation Nausea / Vomiting: adequately controlled Pain: adequately controlled Airway Patency, RR, SpO2: stable & adequate BP & HR: stable & adequate Hydration State: stable & adequate
[2018-10-18] MEDS: ACETAMINOPHEN 500 MG TAB PO SCH ×4 (09:00→20:29)
[2018-10-18] MEDS: HEPARIN SOD 5,000 UNIT/0.5 ML VIAL SQ SCH ×2 (09:30→20:30)
[2018-10-18] MEDS: LISINOPRIL 5 MG TAB PO SCH (09:32)
[2018-10-18] MEDS: PANTOprazole 40 MG TAB PO SCH (10:16)
--- NOTE | 2018-10-18 10:44 | Discharge Summary ---
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 She will be casted, ortho or podiatry to see, NWB, Acute rehab eval. Assessment and Plan R Foot Lis Franc Fracture HTN GERD HLD Vertigo OA Hypothyroid DC today to SNF when bed available, NWB R Foot 12 weeks or as per Podiatry. ROS-No Headache, No Visual Changes, No Nausea, No Vomiting, No Fever, No Chills , No Neck Pain or Stiffness, No Chest Pain, No Palpitations, No SOB, No PINEDO, No Cough, No Sputum, No Wheezing, No Abdominal Pain, No Diarrhea, No Hematemesis, No Hemoptysis, No Unexpected Weight Loss, No Flank pain, No Melena, No Hematochezia, No Frequency, No Urgency, No Burning, No Hematuria, No Rashes, No Diaphoresis. Appetite is Normal, R Foot pain and swelling Physical Exam Gen-AAO x 3, NAD, Afebrile, Pleasant Head-NCAT, EOMI, PERRLA, Anicteric Sclera, No Posterior Pharyngeal Erythema Neck-Supple, No JVD, No Thyromegaly, No Masses, No LAD, No Bruits Lungs-Clear to Auscultation Bilaterally, No Rales, No Rhonchi, No Wheezing, No Crepitus Chest-No S4, +S1, +S2, No S3, No Murmurs, No Rubs, No Gallops, No Ectopy Abdomen-Soft, Bowel Sounds Present, Non Tender, Non Distended, No Hepatomegaly, No Splenomegaly, No Palpable Masses, No Rebound, No Rigidity, No Guarding Musculoskeletal-Full Range of Motion Bilaterally, No CVAT Extremities-No Cyanosis, No Clubbing, +Edema R Foot Nuero-Cranial Nerves II-XII grossly intact, Motor WNL, DTRs WNL, Strength WNL, Non Focal Psych-Normal Mood PMH-HTN, GERD, Hypothyroidism, Osteoarthritis, Vertigo, Hard of Hearing, and HLD PSH-Hernia repair R Inguinal, Cataract Soc-No Tob/Etoh, , Lives c Son, Housewife FH-M of Sepsis at 91, F of Lung [place], [place], 15 Brothers and sisters ( No MIs, CVAs, or Cancer, 1 Son healthy, 2 Daughters, 1 c DM, other 2 healthy. Allergies rosuvastatin Allergy (Severe, Verified 10/16/18 15:38) ITCHY Height/Weight/Isolation Height 5 ft 7 in Weight 77 kg Chemistry 10/16/18 17:20 Sodium 141 Potassium 4.2 Chloride 107 Carbon Dioxide 28 Anion Gap 6.0 BUN 20 H Creatinine 0.[address] Foot-IMPRESSION: 3 mm of lateral displacement of the base of the right second metatarsal with respect to the intermediate cuneiform and acute mildly displaced fractures of the medial, intermediate and lateral cuneiforms bones, the dorsal cuboid and bases of the right second, third and fourth metatarsals consistent with a Lis Franc fracture/dislocation injury. IMPRESSION: No acute fracture of the right tibia or fibula IMPRESSION: 1. No acute fracture. 2. Moderate osteoarthritis of the left knee. Foot XR-IMPRESSION: Mild lateral displacement of the base of the right second metatarsal with respect to the intermediate cuneiform and suspected acute fractures of the bases of the second and third metatarsals. These findings raise the possibility of a Lis Franc injury. A CT of the right foot is recommended. Admission Exam Per Admitting Provider ROS-No Headache, No Visual Changes, No Nausea, No Vomiting, No Fever, No Chills , No Neck Pain or Stiffness, No Chest Pain, No Palpitations, No SOB, No PINEDO, No Cough, No Sputum, No Wheezing, No Abdominal Pain, No Diarrhea, No Hematemesis, No Hemoptysis, No Unexpected Weight Loss, No Flank pain, No Melena, No Hematochezia, No Frequency, No Urgency, No Burning, No Hematuria, No Rashes, No Diaphoresis. Appetite is Normal, R Foot pain and swelling Physical Exam Gen-AAO x 3, NAD, Afebrile, Pleasant Head-NCAT, EOMI, PERRLA, Anicteric Sclera, No Posterior Pharyngeal Erythema Neck-Supple, No JVD, No Thyromegaly, No Masses, No LAD, No Bruits Lungs-Clear to Auscultation Bilaterally, No Rales, No Rhonchi, No Wheezing, No Crepitus Chest-No S4, +S1, +S2, No S3, No Murmurs, No Rubs, No Gallops, No Ectopy Abdomen-Soft, Bowel Sounds Present, Non Tender, Non Distended, No Hepatomegaly, No Splenomegaly, No Palpable Masses, No Rebound, No Rigidity, No Guarding Musculoskeletal-Full Range of Motion Bilaterally, No CVAT Extremities-No Cyanosis, No Clubbing, +Edema R Foot Nuero-Cranial Nerves II-XII grossly intact, Motor WNL, DTRs WNL, Strength WNL, Non Focal Psych-Normal Mood Principal Diagnosis R Foot Lis Franc Fracture s/p repair 10/[address] Vivar HTN GERD HLD Vertigo OA Hypothyroid Discharge Exam ROS-No Headache, No Visual Changes, No Nausea, No Vomiting, No Fever, No Chills , No Neck Pain or Stiffness, No Chest Pain, No Palpitations, No SOB, No PINEDO, No Cough, No Sputum, No Wheezing, No Abdominal Pain, No Diarrhea, No Hematemesis, No Hemoptysis, No Unexpected Weight Loss, No Flank pain, No Melena, No Hematochezia, No Frequency, No Urgency, No Burning, No Hematuria, No Rashes, No Diaphoresis. Appetite is Normal, Sore foot, Bearable Physical Exam Gen-AAO x 3, NAD, Afebrile Head-NCAT, EOMI, PERRLA, Anicteric Sclera, No Posterior Pharyngeal Erythema Neck-Supple, No JVD, No Thyromegaly, No Masses, No LAD, No Bruits Lungs-Clear to Auscultation Bilaterally, No Rales, No Rhonchi, No Wheezing, No Crepitus Chest-No S4, +S1, +S2, No S3, No Murmurs, No Rubs, No Gallops, No Ectopy Abdomen-Soft, Bowel Sounds Present, Non Tender, Non Distended, No Hepatomegaly, No Splenomegaly, No Palpable Masses, No Rebound, No Rigidity, No Guarding Musculoskeletal-Full Range of Motion Bilaterally, No CVAT Extremities-No Cyanosis, No Clubbing, No Edema, Foot casted Nuero-Cranial Nerves II-XII grossly intact, Motor WNL, DTRs WNL, Strength WNL, Non Focal Psych-Normal Mood Discharge Data Allergies Allergy/AdvReac Type Severity Reaction Status Date / Time rosuvastatin Allergy Severe ITCHY Verified 10/16/18 15:38 Consultations 10/16/18 17:07 ED Decision to Admit Stat 10/16/18 19:21 Consult Podiatry Stat 10/18/18 10:37 Consult Case Management - Discharge Planning Routine Procedures Performed Operation Date: 10/17/18 07:00 Actual Procedures p Closed Reduction and pinning of Mid Foot Fracture Right(Right) - Soham Avendaño DPM Current Diagnoses Hypothyroidism, unspecified (10/16/18) Hyperlipidemia, unspecified (10/16/18) Essential (primary) hypertension (10/16/18) Gastro-esophageal reflux disease without esophagitis (10/16/18) Unspecified osteoarthritis, unspecified site (10/16/18) Dizziness and giddiness (10/16/18) Unspecified fracture of right foot, initial encounter for closed fracture (10/16) Allergies rosuvastatin Allergy (Severe, Verified 10/16/18 15:38) ITCHY Height/Weight/Isolation Height 5 ft 7 in Weight 77 kg Chemistry 10/16/18 10/17/18 10/18/18 17:20 06:16 06:46 Sodium 141 139 137 Potassium 4.2 3.6 4.0 Chloride 107 106 106 Carbon Dioxide 28 27 25 Anion Gap 6.0 6.0 6.0 BUN 20 H 16 19 H Creatinine 0.93 0.87 0.99 Glucose 99 103 H 136 H Ordered Studies 10/16/18 15:38 CT foot RT wo con Stat 10/17/18 12:30 FL fluoroscopy <1hr Routine FL foot RT 2V Routine 10/17/18 23:00 US - OR guided needle placement Routine Hospital Course (1) Foot fracture, right: Came in 10/14 c R Lis Franc fracture. Slipped on Mud, Repaired by Podiatry , SNF ot LTC 12 weeks [facility], DC when bed avialable (2) Hypertension: (3) Hypothyroidism: (4) HLD (hyperlipidemia): (5) GERD (gastroesophageal reflux disease): (6) Osteoarthritis: (7) Vertigo: (8) DVT prophylaxis: Total Time Total Time Spent Total Time Spent (In Minutes): 45 mins Discharge Plan Discharge Items Patient Disposition: Transfer [facility] Reason For Visit: FOOT FRACTURE Discharge Diagnosis: R Foot Lis Franc Fracture s/p repair 10/[address] Vivar HTN GERD HLD Vertigo OA Hypothyroid Condition: Good Discharge Goals: Decrease discomfort and Improve function Activity: Per 'Additional Instructions' section Activity Comment: NWB 12 weeks right foot Lifting: Gradually increase as tolerated Bathing: Keep incision dry Sexual Activity: When tolerated Exercise/Sports: None Driving/Machine Use Comment: No driving Weightbearing: Left weightbearing and Right non-weightbearing Non-emergency contact: Primary Care Provider Call non-emergency contact if: you have any medication questions and your pain is worsening Follow-up/Referrals: Nancy Mackey MD [Primary Care Provider] - Diet: Regular Fluids: 2000ml (8 cups) Addtl Provider Instructions: Follow up c Podiatry as directed Prescriptions: New acetaminophen [Pain Reliever] 500 mg Tablet 500 mg PO Q4HWA Qty: 100 RF: 0 oxycodone 5 mg Tablet 7.5 mg PO Q4 PRN (Reason: pain) Qty: 30 RF: 0 heparin, porcine (PF) 5,000 unit/0.5 mL Syringe 5,000 unit subcut Q12 Qty: 100 RF: 0 polyethylene glycol 3350 [Miralax] 17 gram Powder In Packet 17 g PO DAILY PRN (Reason: constipation) Qty: 30 RF: 0 Continue meclizine 25 mg tablet 25 mg PO Q8H PRN (Reason: Nausea) RF: 0 levothyroxine 50 mcg tablet 50 mcg PO DAILY RF: 0 omeprazole 20 mg capsule,delayed release(DR/EC) 20 mg PO DAILY RF: 0 lisinopril 5 mg tablet 5 mg PO DAILY RF: 0 albuterol sulfate [Ventolin HFA] 90 mcg/actuation HFA aerosol inhaler 2 puff Inhalation UD PRN (Reason: Shortness Of Breath) RF: 0 Stand-Alone Forms: [facility] Discharge Orders: Discharge Order (Routine); Ordered 10/18/18 Ordered By: Juarez Hdz Skilled Items Patient informed of condition?: Yes DNR: No Discharge Level of Care: Skilled Communicable Disease: No Discharge Prognosis: Improving Admission Data Admit Date/Time: 10/16/18 18:04 Attending Provider: Juarez Hdz Admit Provider: Juarez Hdz Primary Care Provider: Nancy Mackey Other Providers: Juarez Hdz ; Shyla Vivar Service: Medical Other Pending Studies at Discharge: No
[2018-10-19] MEDS: LEVOTHYROXINE SODIUM 50 MCG TABLET PO SCH (05:27)
[2018-10-19 06:44] VITALS: O2SAT 92
[2018-10-19] MEDS: ACETAMINOPHEN 500 MG TAB PO SCH ×2 (08:30→12:32)
[2018-10-19] MEDS: PANTOprazole 40 MG TAB PO SCH (08:31)
[2018-10-19] MEDS: LISINOPRIL 5 MG TAB PO SCH (08:31)
[2018-10-19] MEDS: HEPARIN SOD 5,000 UNIT/0.5 ML VIAL SQ SCH (08:32)
--- NOTE | 2018-10-19 11:09 | Progress Note ---
DATE: 10/19/2018 SUBJECTIVE: The patient is seen at bedside on postoperative day 2, is resting comfortably, awaiting long term facility placement, moderate amount of foot pain is noted to the right. Currently working with physical therapy to remain nonweightbearing. OBJECTIVE: VITAL SIGNS: Temperature 36.8, respirations 16, pulse 71, BP 129/76. LOWER EXTREMITIES: Posterior splint intact, clean and dry. Good cap refill noted to the toes. LABORATORIES: H and H are 11.6 and 35.6. WBC within normal limits. IMPRESSION: Status post Lisfranc joint closed reduction with pinning, postoperative day 2. TREATMENT: Continue nonweightbearing ambulation. Recommend the dressing remain clean, dry and intact, to be changed weekly at the office. Discussed RICE principles with the patient and elevation to help control pain. We will follow up with the patient in 1 week in the office for dressing change. We will also check insurance coverage for AFO, to advance to weightbearing once pin fixation is removed. Reviewed the typical postoperative course with the patient. All questions were answered at bedside.
[2018-10-19 15:06] VITALS: BP 129/72; PULSE 89; TEMP 98.6
== END 2018-10-19 15:44 ==
LOC: 3W 14:19 → ED 14:19 → 3W 18:45

== ENCOUNTER 2018-12-16 14:47 | Inpatient (IN) ==
[2018-12-16] MEDS ORDERED: Heparin IV Standard *NO* Bolus ONE (15:05)
[2018-12-16 15:22] LABS: Hematocrit (blood only) 34.3 % (37-47); Hemoglobin 11.1 g/dL (12.0-16.0); Mean Corpuscular Hgb Conc 32.4 g/dL (32-36); Mean Corpuscular Volume 101.2 fL (80-100); Mean Platelet Volume 9.5 fL (7.4-10.4); Platelet Count 221 K/uL (130-400); RDW Coefficient of Variation 13.4 % (11.5-14.5); RDW Standard Deviation 49.3 fL (36.4-46.3); Red Blood Count 3.39 M/uL (4.2-5.4); White Blood Count 13.42 K/uL (4.8-10.8)
--- NOTE | 2018-12-16 15:36 | Emergency Department Note ---
Entered by Shane Acosta acting as a scribe for History of Present Illness General Chief complaint: Leg Injury/Pain Stated complaint: BLOOD CLOT RT LEG SENT BY DR Marte Seen by Provider: 12/16/18 14:53 Source: patient History of Present Illness Provider complaint: Leg pain Onset (ago): hour(s) (Just prior to arrival) Location: lower extremity and right Pain Consistency: + intermittent Relieved By: + none Exacerbated By: + other (Palpation) Associated symptoms: no chest pain, no fever/chills and no shortness of breath The patient is an 83 year old female who presents to the Emergency Room with complaints of intermittent right calf pain that was first noticed just prior to arrival. She states she was at her doctors for a follow up appointment after br eaking her right foot following a fall in October. She did get surgery and had 4 pins placed. She has a splint on her lower right leg and has not been on it since the incident. At the appointment, she noticed pain with palpation of her right calf so she had an ultrasound done that showed an extensive DVT in her right lower extremity. Prior to the appointment she did not notice the pain. The patient was on Heparin injections following the procedure but stopped getting them 3 days ago. The patient has no history of blood clots, nor is she experiencing any shortness of breath or chest pain. Her daughter did mention that she had a fever last week, but it has since resolved. The daughter also me ntioned that the patient was recently diagnosed with first stage dementia. Home Medications Home Medications Medication Instructions Recorded Confirmed Type albuterol sulfate 2 puff INHALATION UD PRN 10/16/18 12/16/18 History levothyroxine 50 mcg PO DAILYBB 10/16/18 12/16/18 History lisinopril 5 mg PO QAM 10/16/18 12/16/18 History meclizine 25 mg PO Q8H PRN 10/16/18 12/16/18 History omeprazole 20 mg PO QAM 10/16/18 12/16/18 History acetaminophen [Pain Reliever] 500 mg PO Q4HWA PRN 12/16/18 12/16/18 History alendronate [Fosamax] 70 mg PO WK 12/16/18 12/16/18 History aspirin 81 mg PO DAILY 12/16/18 12/16/18 History calcium carbonate-vitamin D3 1 tab PO QAM 12/16/18 12/16/18 History [Oyster Shell Calcium-Vit D3] donepezil [Aricept] 5 mg PO DAILY 12/16/18 12/16/18 History oxycodone 7.5 mg PO UD PRN 12/16/18 12/16/18 History polyethylene glycol 3350 [Miralax] 17 g PO UD PRN 12/16/18 12/16/18 History Allergies Allergy/AdvReac Type Severity Reaction Status Date / Time rosuvastatin Allergy Severe ITCHY Verified 12/16/18 15:13 Past Med/Surg History Medical History Lisfranc fracture (Chronic) Lisfranc fracture (Chronic) Osteoarthritis (Chronic) Vertigo (Chronic) GERD (gastroesophageal reflux disease) (Chronic) Hypertension (Chronic) Hypothyroidism (Chronic) Vitamin D deficiency (Chronic) Osteoporosis (Chronic) HLD (hyperlipidemia) (Chronic) Surgical History History of hernia surgery (Chronic) History of cataract extraction (Chronic) Status post right foot surgery (Acute) History of cataract surgery Hx of inguinal hernia surgery Family History Other Family history non-contributory Social History Preferred Language: Cameroonian Beliefs That Will Affect Care: None marital status: / Current Living Situation: Family Current Living Situation Comment: LIVES WITH SON Feels Safe at Home: Yes Smoking Status: Never smoker Hx Alcohol Use: No Hx Substance Use: No Review of Systems See HPI for pertinent positives & negatives. and A total of 10 systems reviewed and were otherwise negative Physical Exam Vital Signs Vital Signs - 24 hr 12/16/18 14:49 12/16/18 15:41 12/16/18 15:43 Temperature 37.2 C Temperature Source Oral Sepsis Recent Fever Within 48 Hours No Sepsis New/Unexplained Change in Mental Status No Sepsis Action Taken by Nursing No Action Required Pulse Rate 99 H 100 H 97 H Pulse Rate [Finger] Pulse Rate from SpO2 Sensor 98 H 97 H Respiratory Rate 20 26 H 23 Respiratory Effort / Characteristics Respiratory Depth Normal Blood Pressure 160/91 H 167/79 H Blood Pressure [Right Arm] Blood Pressure Mean 114 108 Blood Pressure Mean [Right Arm] Pulse Oximetry 94 94 94 Oxygen Delivery Method Room Air 12/16/18 15:54 12/16/18 15:55 12/16/18 16:00 Temperature Temperature Source Sepsis Recent Fever Within 48 Hours Sepsis New/Unexplained Change in Mental Status Sepsis Action Taken by Nursing Pulse Rate 99 H 90 Pulse Rate [Finger] 99 H Pulse Rate from SpO2 Sensor 98 H Respiratory Rate 21 23 26 H Respiratory Effort / Characteristics Respiratory Depth Blood Pressure 180/87 H Blood Pressure [Right Arm] 180/87 H Blood Pressure Mean 118 Blood Pressure Mean [Right Arm] 118 Pulse Oximetry 95 Oxygen Delivery Method Room Air 12/16/18 16:10 12/16/18 16:20 12/16/18 16:30 Temperature Temperature Source Sepsis Recent Fever Within 48 Hours Sepsis New/Unexplained Change in Mental Status Sepsis Action Taken by Nursing Pulse Rate 99 H 89 95 H Pulse Rate [Finger] Pulse Rate from SpO2 Sensor Respiratory Rate 25 H 23 22 Respiratory Effort / Characteristics Respiratory Depth Blood Pressure 186/95 H Blood Pressure [Right Arm] Blood Pressure Mean 125 Blood Pressure Mean [Right Arm] Pulse Oximetry Oxygen Delivery Method 12/16/18 16:40 12/16/18 16:50 12/16/18 17:00 Temperature Temperature Source Sepsis Recent Fever Within 48 Hours Sepsis New/Unexplained Change in Mental Status Sepsis Action Taken by Nursing Pulse Rate 99 H 101 H 90 Pulse Rate [Finger] Pulse Rate from SpO2 Sensor 90 Respiratory Rate 21 19 24 Respiratory Effort / Characteristics Respiratory Depth Blood Pressure 168/104 H Blood Pressure [Right Arm] Blood Pressure Mean 125 Blood Pressure Mean [Right Arm] Pulse Oximetry 92 Oxygen Delivery Method 12/16/18 17:10 12/16/18 17:20 12/16/18 17:29 Temperature Temperature Source Sepsis Recent Fever Within 48 Hours Sepsis New/Unexplained Change in Mental Status Sepsis Action Taken by Nursing Pulse Rate 88 90 Pulse Rate [Finger] 84 Pulse Rate from SpO2 Sensor 91 H 96 H Respiratory Rate 25 H 20 22 Respiratory Effort / Characteristics Non-Labored Respiratory Depth Normal Blood Pressure Blood Pressure [Right Arm] 155/85 H Blood Pressure Mean Blood Pressure Mean [Right Arm] 108 Pulse Oximetry 92 94 93 Oxygen Delivery Method Room Air GENERAL: Patient is in no acute distress. HEENT: No acute trauma, normocephalic atraumatic, mucous membranes moist, no nasal congestion, no scleral icterus. NECK: No stridor, no adenopathy, no meningismus, trachea is midline. LUNGS: Clear to auscultation bilaterally, no wheeze, no rhonchi, breath sounds equal. HEART: Occasional extra beat heard, no murmurs, normal rate. ABDOMEN: Soft, nontender, bowel sounds positive, no hernias, no peritonitis. EXTREMITIES: Splint with aden wrap on the right leg below the knee. No left lower extremity edema, or upper extremity edema. NEUROLOGIC: Oriented x 3, no acute motor or sensory deficits, no focal weakness. SKIN: No rash, no jaundice, no diaphoresis. Course 1456: The patient was evaluated in room B09, and a complete history and physical examination were performed. 1504: I spoke to Marcela Rausch PA-C, for Dr. Vivien Flores and they are going to accept the patient for further evaluation. 1510: I called Dr. Vivar and updated her on the patient's disposition. Consultations Consultation #1: I spoke to Marcela Rausch PA-C, for Dr. Vivien Flores and they are going to accept the patient for further evaluation. Time: 15:04 Administered Medications Discontinued Medications Acetaminophen (Tylenol) 650 mg PO NOW STA Stop: 12/16/18 16:07 Last Admin: 12/16/18 16:44 Dose: 650 mg Documented by: [id number] Heparin Sodium/Dextrose () 1 N/A ONE ONE; Protocol Stop: 12/16/18 15:06 Last Admin: 12/16/18 16:41 Dose: Not Given Documented by: [id number] Heparin Sodium/Dextrose (Heparin Sodium/Dextrose) Confirm Administered Dose 25,000 units IV .K-MED ONE Stop: 12/16/18 16:37 Last Admin: 12/16/18 16:41 Dose: 25,000 units Documented by: [id number] Cosigned by: [id number] Medical Decision Making Differential Diagnosis Differential Diagnosis: DVT, Cellulitis, Venous insufficiency, Stasis, Swelling, Coagulopathy, PE, Electrolyte imbalance, and Anemia, amongst others. Medical Records Attestation: I reviewed the patient's medical records. Home Medications Current Medication List: was personally reviewed by me Laboratory Data Attestation: I reviewed the patient's lab results. Result diagrams: 12/16/18 15:14 12/16/18 15:14 Lab Results 12/16/18 12/16/18 12/16/18 Range/Units 15:14 15:14 15:14 WBC 13.42 H (4.8-10.8) K/uL RBC 3.39 L (4.2-5.4) M/uL Hgb 11.1 L (12.0-16.0) g/dL Hct 34.3 L (37-47) % MCV 101.2 H (80-100) fL MCH 32.7 (25-34) pg MCHC 32.4 (32-36) g/dL RDW Std Deviation 49.3 H (36.4-46.3) fL RDW Coeff of Alea 13.4 (11.5-14.5) % Plt Count 221 (130-400) K/uL MPV 9.5 (7.4-10.4) fL PT 11.6 (9.0-12.0) Seconds INR 1.1 (0.9-1.1) APTT 28.5 (21.0-31.0) Seconds PTT Ratio 1.1 Sodium 137 (136-145) mmol/L Potassium (3.5-5.1) mmol/L Chloride 106 (98-107) mmol/L Carbon Dioxide 25 (21-32) mmol/L Anion Gap 6.0 (3-11) BUN 20 H (7-18) mg/dl Creatinine 1.00 (0.6-1.2) mg/dl Est Cr Clr Drug Dosing 49.1 ml/min Est GFR ( Amer) 60.8 Est GFR (Non-Af Amer) 52.4 BUN/Creatinine Ratio 19.6 (10-20) Glucose 150 H (70-99) mg/dl Calcium 9.3 (8.5-10.1) mg/dl Total Bilirubin 0.6 (0.2-1) mg/dl AST (15-37) U/L ALT 22 (12-78) U/L Alkaline Phosphatase 89 (45-117) U/L Total Protein 8.0 (6.4-8.2) gm/dl Albumin 2.7 L (3.4-5.0) gm/dl Globulin 5.3 H (2.5-4.0) gm/dl Albumin/Globulin Ratio 0.5 L (0.9-2) Imaging Data Radiologist's Impression: Radiology results as stated below per my review and the radiologist's interpretation: ULTRASOUND RIGHT LOWER EXTREMITY VENOUS CLINICAL HISTORY: Right lower extremity edema. COMPARISON STUDY: Bilateral lower extremity venous ultrasound dated 03/01/2016. TECHNIQUE: Real-time, grayscale, and color Doppler sonography of the deep veins of the right lower extremity was performed from the inguinal crease to the calf. Compression and augmentation were utilized. FINDINGS: There is extensive nearly occlusive to occlusive deep venous thrombosis seen extending from the common femoral vein to the calf. The greater saphenous vein and the profunda femoris vein at the junction with the common femoral vein are clear. Soft tissue edema is noted in the right lower extremity. IMPRESSION: Extensive right lower extremity deep venous thrombosis as above. Electronically signed by: Osvaldo Cruz M.D. 12/16/2018 1:53 PM ECG Data Attestation: I personally reviewed and interpreted this ECG as follows: Indication: other (Right leg DVT) Rate (beats per minute): 93 Rhythm: normal sinus Findings: + other (Some sinus arrhythmia); no PVC and no ST elevation Blood Pressure Blood Pressure Findings: Elevated blood pressure Blood Pressure Disposition: further management by hospitalist [facility] Narrative There is a mild leukocytosis at 13,000, this could be consistent with infection or maybe just the stress of her situation. There was a mild anemia with a hemoglobin of 11.1. No coagulopathy. No significant electrolyte abnormality, kidney failure or hepatitis. On exam, the patient was not toxic in appearance. She denied feeling short of breath. Right leg ultrasound performed earlier today showed an extensive DVT in the right lower extremity. The patient is in need of hospitalization. The DVT is quite extensive. I spoke to the patient about anticoagulation, she did consent. The patient was given IV heparin, this was ordered to be started as a drip, no bolus administered. The patient is in need of a hospital stay, case management has been involved. I did speak with the on-call hospitalist. Impression & Plan Deep vein thrombosis (DVT) of right lower extremity, Status post right foot surgery Discharge Plan Visit Data *Final* Discharge Date/Time: 12/16/18 17:30 Chief Complaint: Leg Injury/Pain Stated Complaint: BLOOD CLOT RT LEG SENT BY DR NOVOA Provider: Osvaldo Velasco Discharge Problem: Deep vein thrombosis (DVT) of right lower extremity, Status post right foot surgery Patient Disposition: Admitted As Inpatient Discharge Instructions Interventions: ED Discharge Assessment Last Done: 12/16/18 17:30 Discharge Problem: Deep vein thrombosis (DVT) of right lower extremity Qualifiers: Affected thrombotic vein of extremity: femoral Chronicity: acute Qualified Code(s): I82.411 - Acute embolism and thrombosis of right femoral vein The scribe's documentation has been prepared under my direction and personally reviewed by me in its entirety. I confirm that the note above accurately reflects all work, treatment, procedures, and medical decision making performed by me.
[2018-12-16 15:49] LABS: INR 1.1 (0.9-1.1); Partial Thromboplastin Ratio 1.1; Partial Thromboplastin Time 28.5 Seconds (21.0-31.0); Prothrombin Time 11.6 Seconds (9.0-12.0)
--- NOTE | 2018-12-16 15:55 | History & Physical Report ---
Date of Service December 16, 2018 Assessment & Plan (1) Deep vein thrombosis (DVT) of right lower extremity: This is a 83-year-old female who has a significant PMH of HTN, HLD, hypothyroidism, mild dementia, osteoarthritis, vitamin D deficiency who presents to [facility] secondary to right lower extremity DVT found on outpatient ultrasound. US RLE extensive DVT to RLE extending from common femoral vein to calf Patient was taking heparin q 12hrs until [address] her on Lovenox and coumadin Because of extensive clot burden involving common femoral Eliquis is not great choice though it can be used as per . Family wants to go with coumadin Continue NWB to RLE and splint care (2) Status post right foot surgery: 10/17/18 patient underwent close reduction and pinning of right Lisfranc fracture by Dr. Vivar Splint continues to be in place with 4 pins remaining NWB to RLE Supposed to take out pins today but was not taken out as patient was found to have DVT Will consult Dr. Vivar pt/ot social service for any placement (3) Hypertension: blood pressure elevated currently, likely in setting of anxiety/pain continue lisinopril and monitor (4) HLD (hyperlipidemia): heart healthy diet (5) Hypothyroidism: continue levothyroxine (6) Osteoporosis: continue calcium +D, Fosamax (7) Senile dementia: continue aricept mood stable Full Code Disposition: D/C to home when medically able Follow up: PCP Dr. Mackey upon discharge Patient was seen and examined in collaboration with Dr. Puga, please see addendum History of Present Illness Chief Complaint: RLE Pain and swelling. Primary Care Provider: Nancy Mackey MD This is a 83-year-old female who has a significant PMH of HTN, HLD, hypothyroidism, mild dementia, osteoarthritis, vitamin D deficiency who presents to [facility] secondary to right lower extremity DVT found on outpatient ultrasound. Patient was hospitalized at [facility] 10/16-10/19 after falling while getting out of a confucianism van. She was subsequently diagnosed with a right Lisfranc fracture. On 10/17 she underwent closed reduction and pinning of fracture by Dr. Vivar. She was discharged to [facility] from 10/19-12/03 for subacute rehab. She was receiving heparin injections for DVT prophylaxis. Injections were stopped on 12/13 after visit with PCP and switched to ASA 81 bid. Patient to follow-up in podiatry office today and when splint was removed she was noted to have increased swelling of right lower extremity and pain to right calf. She was referred for an outpatient ultrasound which revealed extensive right lower extremity DVT and was encouraged to seek ED. currently she complains of 5/10 pain to right foot but otherwise no right calf pain while at rest. She currently still has [address] and according to family will remain in place for a couple more weeks before removed and transitioned to [facility]. Daughter complains of dry cough and also increased memory loss. Notes she was just started on medication for dementia. She denies f/c/s, chest pain, sob, hemoptysis, n/v/d, abdominal pain, change in bowel or urinary habits. Appetite has been good. Allergies Allergy/AdvReac Type Severity Reaction Status Date / Time rosuvastatin Allergy Severe ITCHY Verified 12/16/18 15:13 Home Medications Home Medications Medication Instructions Recorded Confirmed Type albuterol sulfate 2 puff INHALATION UD PRN 10/16/18 12/16/18 History levothyroxine 50 mcg PO DAILYBB 10/16/18 12/16/18 History lisinopril 5 mg PO QAM 10/16/18 12/16/18 History meclizine 25 mg PO Q8H PRN 10/16/18 12/16/18 History omeprazole 20 mg PO QAM 10/16/18 12/16/18 History acetaminophen [Pain Reliever] 500 mg PO Q4HWA PRN 12/16/18 12/16/18 History alendronate [Fosamax] 70 mg PO WK 12/16/18 12/16/18 History aspirin 81 mg PO DAILY 12/16/18 12/16/18 History calcium carbonate-vitamin D3 1 tab PO QAM 12/16/18 12/16/18 History [Oyster Shell Calcium-Vit D3] donepezil [Aricept] 5 mg PO DAILY 12/16/18 12/16/18 History oxycodone 7.5 mg PO UD PRN 12/16/18 12/16/18 History polyethylene glycol 3350 [Miralax] 17 g PO UD PRN 12/16/18 12/16/18 History Past Med/Surg History Medical History Lisfranc fracture (Chronic) Lisfranc fracture (Chronic) Osteoarthritis (Chronic) Vertigo (Chronic) GERD (gastroesophageal reflux disease) (Chronic) Hypertension (Chronic) Hypothyroidism (Chronic) Vitamin D deficiency (Chronic) Osteoporosis (Chronic) HLD (hyperlipidemia) (Chronic) Surgical History History of hernia surgery (Chronic) History of cataract extraction (Chronic) Status post right foot surgery (Acute) History of cataract surgery Hx of inguinal hernia surgery Family History Other Family history non-contributory Social History Preferred Language: British Beliefs That Will Affect Care: None marital status: / Current Living Situation: Family Current Living Situation Comment: LIVES WITH SON Feels Safe at Home: Yes Smoking Status: Never smoker Hx Alcohol Use: No Hx Substance Use: No Review of Systems All systems reviewed & are unremarkable except as noted in HPI & below Physical Exam Vital Signs (Past 24 Hours): Last Vital Signs Temp 37.2 C 12/16/18 14:49 Pulse 99 H 12/16/18 14:49 Resp 20 12/16/18 14:49 BP 160/91 H 12/16/18 14:49 Pulse Ox 94 12/16/18 14:49 Physical Exam: Gen: WD/WN, Elderly, F, NAD, sitting up in wheel chair, pl easant, conversing easily Head: Normocephalic, Atraumatic Eyes: Sclera normal, no conjunctival injection, PERRLA, EOMI ENT: Gross hearing intact, normal pharynx, mucous membranes moist Neck: supple, no adenopathy, No JVD, no bruit, Resp: Clear to auscultation b/l, no wheeze, rales, rhonchi. Normal insp/exp effort, no accessory muscle use CV: Regular rate, regular rhythm, no murmur, rub, gallop, or ectopy Abd: +BS x 4, soft, nontender, nondistended Musculoskeletal: moves extremities active rom x 3, strength intact, good diesel inspector strength, RLE splint in place, NVI distally, no erythema or redness noted, +b/l edema +1, no pain to palpation or palpable cord Extremities: +1 b/l lower ext edema bilaterally Skin: warm, moist, no rash, negative turgor, cap refill < 2sec Neuro: Alert and oriented x 3, speech normal, good mood/affect, cran nerve 2-12 intact grossly : deferred Results & Data Laboratory Results Short CBC 12/16/18 Range/Units 15:14 WBC 13.42 H (4.8-10.8) K/uL Hgb 11.1 L (12.0-16.0) g/dL Hct 34.3 L (37-47) % Plt Count 221 (130-400) K/uL Diagnostic Findings RLE U/S: FINDINGS: There is extensive nearly occlusive to occlusive deep venous thrombosis seen extending from the common femoral vein to the calf. The greater saphenous vein and the profunda femoris vein at the junction with the common femoral vein are clear. Soft tissue edema is noted in the right lower extremity. IMPRESSION: Extensive right lower extremity deep venous thrombosis as above. Code Status & VTE Plan Code Status Full Code VTE Prophylaxis Plan VTE Prophylaxis will be ordered: Yes Supervising Physician Co-Signing Physician Notes Care coordinated with Marcela Saini. Agree with above note. Patient seen and examined. Please refer to her notes for full details. Vital signs reviewed. Physical exam: General exam: Alert and oriented. Not in acute distress. CVS: S1 and S2 heard, regular rate and rhythm, no murmurs. RS: Clear to auscultation, no wheezing or crackles. ABD: Soft, bowel sounds present, nontender, no distention. EMERGENCY MEDICAL SERVICE COORDINATOR: Nonfocal. EXT:Right Lower Ext in Splint Labs: Reviewed. Assessment and plan: Acute Right lower extremity extensive DVT Plan for lovenox and coumadin as mentioned above follow pt/inr followup with coumadin clinic on discharge HTN on lisinopril will monitor Other diagnosis and plan of care as per Marcela suarez MD. (1) Senile dementia Dementia behavioral disturbance: without behavioral disturbance Qualified Code(s): F03.90 - Unspecified dementia without behavioral disturbance (2) HLD (hyperlipidemia) Hyperlipidemia type: unspecified Qualified Code(s): E78.5 - Hyperlipidemia, unspecified (3) Hypothyroidism Hypothyroidism type: unspecified Qualified Code(s): E03.9 - Hypothyroidism, unspecified (4) Deep vein thrombosis (DVT) of right lower extremity Affected thrombotic vein of extremity: femoral Chronicity: acute Qualified Code(s): I82.411 - Acute embolism and thrombosis of right femoral vein (5) Hypertension Hypertension type: essential hypertension Qualified Code(s): I10 - Essential (primary) hypertension
[2018-12-16] MEDS ORDERED: ACETAMINOPHEN 325 MG TAB PO STA (16:06)
[2018-12-16 16:15] LABS: Albumin Globulin Ratio 0.5 (0.9-2); Albumin Level 2.7 gm/dl (3.4-5.0); BUN Creatinine Ratio 19.6 (10-20); Bilirubin,Total 0.6 mg/dl (0.2-1); Calcium 9.3 mg/dl (8.5-10.1); Creatinine Clr Calc Pharmacy 49.1 ml/min; Est GFR (African American) 60.8; Est GFR (Non-African American) 52.4; Globulin 5.3 gm/dl (2.5-4.0)
[2018-12-16] MEDS ORDERED: Heparin Adult STANDARD Wt-Based Dextrose 5% 25,000 units/500 mL IV SCH (16:15)
[2018-12-16] MEDS ORDERED: HEPARIN 25000 UNIT/500 ML D5W IV ONE (16:36)
[2018-12-16] MEDS ORDERED: ONDANSETRON INJ 2 MG/ML 2 ML VIAL IV PRN (19:18)
[2018-12-16] MEDS ORDERED: MAGNESIUM HYDROXIDE SUSP 30 ML UDC PO PRN (19:18)
[2018-12-16] MEDS ORDERED: ALUMINUM/MAGNESIUM SUSP 30 ML UDC PO PRN (19:18)
[2018-12-16] MEDS ORDERED: ALBUTEROL HFA 8 GM INHALER INH PRN (19:18)
[2018-12-16] MEDS ORDERED: POLYETHYLENE (MIRALAX) 17 GM PACK PO PRN (19:18)
[2018-12-16] MEDS ORDERED: WARFARIN SOD 5 MG TAB PO STA (19:31)
[2018-12-16] MEDS: ENOXAPARIN 80 MG/0.8 ML SYR SQ SCH (21:41)
[2018-12-17] MEDS: LEVOTHYROXINE SODIUM 50 MCG TABLET PO SCH (06:20)
[2018-12-17 06:54] LABS: INR 1.2 (0.9-1.1)
[2018-12-17] MEDS: ENOXAPARIN 80 MG/0.8 ML SYR SQ SCH ×2 (08:03→21:25)
[2018-12-17] MEDS: LISINOPRIL 5 MG TAB PO SCH (08:04)
[2018-12-17] MEDS: CALCIUM 600MG + VIT D 400 IU TAB PO SCH (08:04)
[2018-12-17] MEDS: PANTOprazole 40 MG TAB PO SCH (08:04)
--- NOTE | 2018-12-17 10:26 | Hospitalist Progress Note ---
Date of Service December 17, 2018 Delayed entry Date of service as noted above Assessment & Plan (1) Deep vein thrombosis (DVT) of right lower extremity: Because of extensive clot burden involving common femoral Eliquis is not great choice though it can be used as per . Family wants to go with coumadin Continue NWB to RLE and splint care INR 1.2 Continue Coumadin plus Lovenox twice a day INR daily (2) Status post right foot surgery: 10/17/18 patient underwent close reduction and pinning of right Lisfranc fracture by Dr. Vivar Splint continues to be in place with 4 pins remaining NWB to RLE Supposed to take out pins but was not taken out as patient was found to have DVT Dr. Vivar consulted (3) Hypertension: Monitor blood pressure continue lisinopril and monitor (4) HLD (hyperlipidemia): heart healthy diet (5) Hypothyroidism: continue levothyroxine (6) Osteoporosis: continue calcium +D, Fosamax (7) Senile dementia: continue aricept mood stable Full Code Disposition: D/C to home when medically able Follow up: PCP Dr. Mackey upon discharge Subjective Follow-up for DVT right leg Seen resting in bed, comfortable States she feels fine overall Has minimal discomfort on the right foot Shortness of breath, palpitations, dizziness, chest pain Denies other symptoms Physical Exam Vital Signs (Past 24 Hours): Last Vital Signs Temp 37.0 C 12/17/18 07:52 Pulse 91 H 12/17/18 07:52 Resp 20 12/17/18 07:52 BP 142/87 H 12/17/18 07:52 Pulse Ox 93 12/17/18 07:52 Physical Exam: General- oriented x 3, not in distress, speaks in sentences with no effort or accessory muscle use Eyes- anicteric Neck- no JVD Lungs- clear breath sounds bilaterally, no rales/wheezes Heart- normal rate, regular rhythm; no murmurs Abdomen- normal bowel sounds, nondistended, soft, nontender Extremities- no pretibial edema, no calf tenderness Right lower leg dressing in place Left lower leg mild edema, no warmth or tenderness Neuro- alert, oriented x 3; no gross focal neurologic deficits Skin- warm & dry Results & Data Laboratory Results Noted and reviewed (1) Senile dementia Dementia behavioral disturbance: without behavioral disturbance Qualified Code(s): F03.90 - Unspecified dementia without behavioral disturbance (2) HLD (hyperlipidemia) Hyperlipidemia type: unspecified Qualified Code(s): E78.5 - Hyperlipidemia, unspecified (3) Hypothyroidism Hypothyroidism type: unspecified Qualified Code(s): E03.9 - Hypothyroidism, unspecified (4) Deep vein thrombosis (DVT) of right lower extremity Affected thrombotic vein of extremity: femoral Chronicity: acute Qualified Code(s): I82.411 - Acute embolism and thrombosis of right femoral vein (5) Hypertension Hypertension type: essential hypertension Qualified Code(s): I10 - Essential (primary) hypertension
[2018-12-17] MEDS ORDERED: WARFARIN SOD 5 MG TAB PO SCH (16:00)
[2018-12-18] MEDS: ACETAMINOPHEN 325 MG TAB PO PRN ×2 (01:15→19:02)
[2018-12-18] MEDS: LEVOTHYROXINE SODIUM 50 MCG TABLET PO SCH (06:15)
[2018-12-18 06:19] LABS: INR 1.3 (0.9-1.1); Prothrombin Time 13.3 Seconds (9.0-12.0)
[2018-12-18] MEDS: PANTOprazole 40 MG TAB PO SCH (07:29)
[2018-12-18] MEDS: LISINOPRIL 5 MG TAB PO SCH (07:29)
[2018-12-18] MEDS: ENOXAPARIN 80 MG/0.8 ML SYR SQ SCH ×2 (07:29→20:57)
[2018-12-18] MEDS: CALCIUM 600MG + VIT D 400 IU TAB PO SCH (07:29)
[2018-12-18] MEDS: WARFARIN SOD 7.5 MG TAB PO SCH (15:43)
--- NOTE | 2018-12-18 16:50 | Hospitalist Progress Note ---
Date of Service December 18, 2018 Assessment & Plan (1) Deep vein thrombosis (DVT) of right lower extremity: Because of extensive clot burden involving common femoral Eliquis is not great choice though it can be used as per . Family wants to go with coumadin Continue NWB to RLE and splint care INR 1.3 Increase Coumadin to 7.5 mg p.o. daily Continue Coumadin plus Lovenox twice a day INR daily Discussed with patient's daughter at the bedside Still not comfortable with administering Lovenox at home, patient also unable to administer Lovenox twice a day Will need to establish with Coumadin clinic Patient to remain in the hospital until INR is therapeutic for 24-48 hours , then d/c Lovenox bridge (2) Status post right foot surgery: 10/17/18 patient underwent close reduction and pinning of right Lisfranc fracture by Dr. Vivar Splint continues to be in place with 4 pins remaining NWB to RLE Supposed to take out pins but was not taken out as patient was found to have DVT Dr. Vivar consulted (3) Hypertension: Monitor blood pressure Improving continue lisinopril and monitor (4) HLD (hyperlipidemia): heart healthy diet (5) Hypothyroidism: continue levothyroxine (6) Osteoporosis: continue calcium +D, Fosamax (7) Senile dementia: continue aricept mood stable Full Code Disposition: D/C to home when medically able Follow up: PCP Dr. Mackey upon discharge Subjective Follow-up for DVT right leg Resting in bed, comfortable Daughter at the bedside visiting States she feels fine overall Right foot discomfort is improving No chest pain, shortness of breath, palpitations, dizziness No other symptoms Physical Exam Vital Signs (Past 24 Hours): Last Vital Signs Temp 37 C 12/18/18 16:00 Pulse 86 12/18/18 16:00 Resp 20 12/18/18 16:00 BP 112/66 12/18/18 16:00 Pulse Ox 95 12/18/18 16:00 Physical Exam: General- oriented x 3, not in distress, speaks in sentences with no effort or accessory muscle use Eyes- anicteric Neck- no JVD Lungs- clear BS, no crackles, no wheezing bilaterally Heart- normal rate, regular rhythm; no murmurs Abdomen- normal bowel sounds, nondistended, soft, nontender Extremities- no pretibial edema, no calf tenderness Right lower leg: Dressing in place Left lower leg: Mild edema, no warmth or tenderness Neuro- alert, oriented x 3; no gross focal neurologic deficits Skin- warm & dry Results & Data Laboratory Results Laboratory Results - last 24 hr 12/18/18 05:15 PT 13.3 H INR 1.3 H (1) Deep vein thrombosis (DVT) of right lower extremity Affected thrombotic vein of extremity: femoral Chronicity: acute Qualified Code(s): I82.411 - Acute embolism and thrombosis of right femoral vein (2) Hypertension Hypertension type: essential hypertension Qualified Code(s): I10 - Essential (primary) hypertension (3) HLD (hyperlipidemia) Hyperlipidemia type: unspecified Qualified Code(s): E78.5 - Hyperlipidemia, unspecified (4) Hypothyroidism Hypothyroidism type: unspecified Qualified Code(s): E03.9 - Hypothyroidism, unspecified (5) Senile dementia Dementia behavioral disturbance: without behavioral disturbance Qualified Code(s): F03.90 - Unspecified dementia without behavioral disturbance
[2018-12-19 06:29] LABS: INR 1.9 (0.9-1.1); Prothrombin Time 18.3 Seconds (9.0-12.0)
[2018-12-19] MEDS: LEVOTHYROXINE SODIUM 50 MCG TABLET PO SCH (06:30)
[2018-12-19 06:33] LABS: Calcium 8.6 mg/dl (8.5-10.1); Creatinine Clr Calc Pharmacy 68.2 ml/min; Est GFR (African American) 90.4; Potassium 3.7 mmol/L (3.5-5.1)
--- NOTE | 2018-12-19 07:57 | Consultation Report ---
LAST OFFICE VISIT : 12/16/2018 The patient was seen in Dr. Vivar's office this morning for a postop check of right foot Lisfranc fixation repair previously as inpatient [facility]. During evaluation at [facility] visit, the patient had mentioned and complained of some increased swelling on the left calf and lower extremity area as well as some pain and discomfort. The patient was evaluated podiatrically post surgically and the foot was found to be in excellent postoperative condition. Pins were still placed without any drainage; no signs of infection; no foot related edema, inflammation, etc. At this visit, it was determined in part due to some palpable tenderness, as well as that based on patient age and other factors further healing with pins in place would be best protocol to provide optimum healing results. Our patient will be seen in approximately 1 week for further checkup, monitoring and follow up. Up until this time, the patient has been and will continue to be nonweightbearing totally on this postoperative extremity. She is also placed in a splint with dressings that should not be removed or changed. In-office evaluation, with patient voicing questions about continued use of posterior splint, revealed tenderness on the upper calf and posterior knee region. For this reason, the patient was sent for ultrasound evaluation of potential DVT. An additional potential complicator to further raise the potential diagnosis a higher differential is that she was taken off her anticoagulants 2-3 days ago by her PCP office . Those anticoagulants, even before this current hospital admission following ultrasound diagnosis, would still have been required to remain in place until the patient would have been ambulatory and/or out of any confining splints or supports. We were phoned results of the ultrasound and there is a large extended proximal femoral clot. Whether or not that was already present or progressing is unknown, but discussion with Dr. Velasco from the ER indicated that she would be admitted for heparinization and then return to appropriate long-term anticoagulation. The patient from a podiatric perspective again is doing well and needs no particular medications. There is no active wound care, no pain nor other monitoring required. Patient must remain non-weight bearing on this post operative extremity. It is stressed that bandages should remain intact / not changed No dressing changes other than by Dr Avendaño or Dr Vivar at this time. This information is being provided to aid in your hospital management, but please do not hesitate to call me, Dr. Avendaño, or Dr. Vivar if there are additional questions or concerns. If you feel there is a requirement to see the patient bedside, please advise. Please also notify Dr Vivar's office upon discharge. EDGARDO
[2018-12-19] MEDS: CALCIUM 600MG + VIT D 400 IU TAB PO SCH (08:01)
[2018-12-19] MEDS: LISINOPRIL 5 MG TAB PO SCH (08:01)
[2018-12-19] MEDS: ENOXAPARIN 80 MG/0.8 ML SYR SQ SCH ×2 (08:01→19:36)
[2018-12-19] MEDS: PANTOprazole 40 MG TAB PO SCH (08:01)
--- NOTE | 2018-12-19 14:43 | Hospitalist Progress Note ---
Date of Service December 19, 2018 Assessment & Plan (1) Deep vein thrombosis (DVT) of right lower extremity: Likely secondary to lack of movements Because of extensive clot burden involving common femoral Eliquis is not great choice though it can be used as per . Family wants to go with coumadin Continue NWB to RLE and splint care Has been on Lovenox and Coumadin INR is 1.9 on 12/19 Likely be discharged tomorrow Discussed with patient's daughter at the bedside Will need to establish with Coumadin clinic INR is therapeutic as of today We will continue Lovenox and Coumadin tomorrow and send the patient home in the afternoon (2) Status post right foot surgery: 10/17/18 patient underwent close reduction and pinning of right Lisfranc fracture by Dr. Vivar Splint continues to be in place with 4 pins remaining NWB to RLE Supposed to take out pins but was not taken out as patient was found to have DVT Dr. Vivar consulted We will keep outpatient appointment with the insurance premium auditor (3) Hypertension: Monitor blood pressure Improving continue lisinopril and monitor Blood pressure has been upper limit Continue current medications (4) HLD (hyperlipidemia): heart healthy diet (5) Hypothyroidism: continue levothyroxine (6) Osteoporosis: continue calcium +D, Fosamax (7) Senile dementia: continue aricept mood stable Full Code Disposition: D/C to home when medically able Follow up: PCP Dr. Mackey upon discharge INR is therapeutic today we will send the patient home tomorrow on Coumadin Subjective 12/19 The patient was seen and examined in medical telemetry unit She is a status post a right ankle repair and getting anticoagulation for deep venous thrombosis of the leg Clinically stable and denies any symptoms Wants to go home Physical Exam Vital Signs (Past 24 Hours): Last Vital Signs Temp 36.7 C 12/19/18 11:41 Pulse 85 12/19/18 11:41 Resp 18 12/19/18 11:41 BP 159/82 H 12/19/18 11:41 Pulse Ox 96 12/19/18 11:41 Physical Exam: No apparent distress at rest Constitutional: WD/WN, vitals as above Eyes: PERRL, conjunctivae normal, anicteric sclerae ENMT: external ear and nose normal, oropharynx normal Neck: trachea midline, no thyromegaly Respiratory: normal respiratory effort Auscultation: lungs clear to auscultation bilaterally and + diminished lung sounds Cardiovascular: Rate/Rhythm: regular rate and regular rhythm Heart Sounds: normal S1 and normal S2 Gastrointestinal (Abdomen): Inspection/Auscultation: abdomen normal to inspection and normal bowel sounds Percussion/Palpation: abdomen soft; abdomen nontender Musculoskeletal: Extremities: + lower extremity abnormal to inspection (Leg is bandaged in a cast) Right Neurologic: Alert and awake. Has dementia but no acute delirium Results & Data Laboratory Results [facility] 12/19/18 05:43 Sodium 141 Potassium 3.7 Chloride 107 Carbon Dioxide 29 BUN 12 Creatinine 0.72 Glucose 106 H Calcium 8.6 Medications Administered Current Inpatient Medications Acetaminophen (Tylenol) 650 mg PO Q4H PRN PRN Reason: Pain or Fever Stop: 01/15/19 19:17 Last Admin: 12/18/18 19:02 Dose: 650 mg Documented by: Al Hydrox/Mg Hydrox/Simethicone (Maalox) 15 ml PO Q4H PRN PRN Reason: Dyspepsia Stop: 01/15/19 19:17 Albuterol (Ventolin Hfa) 2 puffs INH Q8H PRN PRN Reason: Shortness Of Breath Stop: 01/15/19 19:17 Enoxaparin Sodium (Lovenox) 80 mg SQ Q12H [facility] Stop: 01/15/19 19:59 Last Admin: 12/19/18 08:01 Dose: 80 mg Documented by: Levothyroxine Sodium (Synthroid) 50 mcg PO DAILYBB [facility] Stop: 01/16/19 06:29 Last Admin: 12/19/18 06:30 Dose: 50 mcg Documented by: Lisinopril (Zestril) 5 mg PO QAM [facility] Stop: 01/16/19 08:59 Last Admin: 12/19/18 08:01 Dose: 5 mg Documented by: Magnesium Hydroxide (Milk Of Magnesia) 30 ml PO Q12H PRN PRN Reason: Constipation Stop: 01/15/19 19:17 Multivitamins/Minerals (Caltrate Plus) 1 [facility] [place] [place]: 01/16/19 08:59 Last Admin: 12/19/18 08:01 Dose: 1 tab Documented by: Ondansetron HCl (Zofran) 4 mg IV Q6H PRN PRN Reason: Nausea Stop: 01/15/19 19:17 Pantoprazole Sodium (Protonix) 40 mg PO QAM [facility] Stop: 01/16/19 08:59 Last Admin: 12/19/18 08:01 Dose: 40 mg Documented by: Polyethylene Glycol (Miralax Powder Packet) 17 gm PO DAILY PRN PRN Reason: Constipation Stop: 01/15/19 19:17 Warfarin Sodium (Coumadin) 7.5 mg PO DAILY@1600 [facility] Stop: 01/17/19 15:59 Last Admin: 12/18/18 15:43 Dose: 7.5 mg Documented by: (1) Deep vein thrombosis (DVT) of right lower extremity Affected thrombotic vein of extremity: femoral Chronicity: acute Qualified Code(s): I82.411 - Acute embolism and thrombosis of right femoral vein (2) Hypertension Hypertension type: essential hypertension Qualified Code(s): I10 - Essential (primary) hypertension (3) HLD (hyperlipidemia) Hyperlipidemia type: unspecified Qualified Code(s): E78.5 - Hyperlipidemia, unspecified (4) Hypothyroidism Hypothyroidism type: unspecified Qualified Code(s): E03.9 - Hypothyroidism, unspecified (5) Senile dementia Dementia behavioral disturbance: without behavioral disturbance Qualified Code(s): F03.90 - Unspecified dementia without behavioral disturbance
[2018-12-19] MEDS: WARFARIN SOD 7.5 MG TAB PO SCH (16:10)
[2018-12-20] MEDS: ACETAMINOPHEN 325 MG TAB PO PRN (00:20)
[2018-12-20] MEDS: LEVOTHYROXINE SODIUM 50 MCG TABLET PO SCH (05:55)
[2018-12-20] MEDS: CALCIUM 600MG + VIT D 400 IU TAB PO SCH (07:53)
[2018-12-20] MEDS: PANTOprazole 40 MG TAB PO SCH (07:53)
[2018-12-20] MEDS: LISINOPRIL 5 MG TAB PO SCH (07:53)
[2018-12-20] MEDS: ENOXAPARIN 80 MG/0.8 ML SYR SQ SCH (07:53)
[2018-12-20 08:17] LABS: Basophils # (auto) 0.04 K/uL (0-0.2); Basophils % (auto) 0.5 %; Eosinophils # (auto) 0.34 K/uL (0-0.5); Eosinophils % (auto) 4.2 %; Hematocrit (blood only) 32.2 % (37-47); Hemoglobin 10.2 g/dL (12.0-16.0); Immature Granulocytes # (auto) 0.01 K/uL (0.00-0.02); Immature Granulocytes % (auto) 0.1 %; Lymphocytes # (auto) 1.76 K/uL (1.2-3.4); Mean Corpuscular Hgb Conc 31.7 g/dL (32-36); Mean Corpuscular Volume 102.9 fL (80-100); Mean Platelet Volume 9.3 fL (7.4-10.4); Monocytes # (auto) 1.02 K/uL (0.11-0.59); Monocytes % (auto) 12.7 %; Neutrophils # (auto) 4.84 K/uL (1.4-6.5); Neutrophils % (auto) 60.5 %; Platelet Count 337 K/uL (130-400); RDW Coefficient of Variation 13.2 % (11.5-14.5); RDW Standard Deviation 49.5 fL (36.4-46.3); Red Blood Count 3.13 M/uL (4.2-5.4); White Blood Count 8.01 K/uL (4.8-10.8)
[2018-12-20 08:29] LABS: INR 3.3 (0.9-1.1); Prothrombin Time 30.7 Seconds (9.0-12.0)
[2018-12-20 08:53] LABS: BUN Creatinine Ratio 19.5 (10-20); Calcium 8.8 mg/dl (8.5-10.1); Creatinine Clr Calc Pharmacy 61.4 ml/min; Est GFR (African American) 79.6; Est GFR (Non-African American) 68.7; Potassium 3.5 mmol/L (3.5-5.1)
--- NOTE | 2018-12-20 11:22 | Hospitalist Progress Note ---
Date of Service December 20, 2018 Assessment & Plan (1) Deep vein thrombosis (DVT) of right lower extremity: Likely secondary to lack of movements Because of extensive clot burden involving common femoral Eliquis is not great choice though it can be used as per . Family wants to go with coumadin Continue NWB to RLE and splint care Has been on Lovenox and Coumadin INR is 1.9 on 12/19 INR is 3.3 on 12/20 We will continue Lovenox for today and hold Coumadin Discharge home this evening Discussed with patient's daughter at the bedside Will need to establish with Coumadin clinic INR is therapeutic as of today We will continue Lovenox and Coumadin tomorrow and send the patient home in the afternoon (2) Status post right foot surgery: 10/17/18 patient underwent close reduction and pinning of right Lisfranc fracture by Dr. Vivar Splint continues to be in place with 4 pins remaining NWB to RLE Supposed to take out pins but was not taken out as patient was found to have DVT Dr. Vivar consulted We will keep outpatient appointment with the paper sorter (3) Hypertension: Monitor blood pressure Improving continue lisinopril and monitor Blood pressure has been upper limit Continue current medications Blood pressure seems to be controlled (4) HLD (hyperlipidemia): heart healthy diet (5) Hypothyroidism: Continue levothyroxine (6) Osteoporosis: Continue calcium +D, Fosamax (7) Senile dementia: continue aricept mood stable Full Code Disposition: D/C to home when medically able Follow up: PCP Dr. Mackey upon discharge Will discharge home this evening after the evening dose of Lovenox Subjective 12/19 The patient was seen and examined in medical telemetry unit She is a status post a right ankle repair and getting anticoagulation for deep venous thrombosis of the leg Clinically stable and denies any symptoms Wants to go home 12/20 The patient was seen and examined in medical floor She has been stable for the last few days Denies any significant pain in the leg Her INR is 3.3 today and she will be discharged this evening Physical Exam Vital Signs (Past 24 Hours): Last Vital Signs Temp 36.8 C 12/20/18 08:00 Pulse 78 12/20/18 08:00 Resp 18 12/20/18 08:00 BP 148/77 H 12/20/18 08:00 Pulse Ox 92 04/16/19 08:00 Physical Exam: Lying in bed comfortably Constitutional: WD/WN, vitals as above Eyes: PERRL, conjunctivae normal, anicteric sclerae ENMT: external ear and nose normal, oropharynx normal Neck: trachea midline, no thyromegaly Respiratory: normal respiratory effort Auscultation: lungs clear to auscultation bilaterally and + diminished lung sounds Cardiovascular: Rate/Rhythm: regular rate and regular rhythm Heart Sounds: normal S1 and normal S2 Gastrointestinal (Abdomen): Inspection/Auscultation: abdomen normal to inspection and normal bowel sounds Percussion/Palpation: abdomen soft; abdomen nontender Musculoskeletal: Extremities: + lower extremity abnormal to inspection (Leg is bandaged in a cast) Right Neurologic: Alert, awake, pleasantly confused. Generally weak Results & Data Laboratory Results Short CBC 12/20/18 Range/Units 07:38 WBC 8.01 (4.8-10.8) K/uL Hgb 10.2 L (12.0-16.0) g/dL Hct 32.2 L (37-47) % Plt Count 337 (130-400) K/uL BMP 12/20/18 07:38 Sodium 141 Potassium 3.5 Chloride 107 Carbon Dioxide 27 BUN 16 Creatinine 0.80 Glucose 95 Calcium 8.8 Medications Administered Current Inpatient Medications Acetaminophen (Tylenol) 650 mg PO Q4H PRN PRN Reason: Pain or Fever Stop: 01/15/19 19:17 Last Admin: 12/20/18 00:20 Dose: 650 mg Documented by: Al Hydrox/Mg Hydrox/Simethicone (Maalox) 15 ml PO Q4H PRN PRN Reason: Dyspepsia Stop: 01/15/19 19:17 Albuterol (Ventolin Hfa) 2 puffs INH Q8H PRN PRN Reason: Shortness Of Breath Stop: 01/15/19 19:17 Enoxaparin Sodium (Lovenox) 80 mg SQ Q12H [facility] Stop: 01/15/19 19:59 Last Admin: 12/20/18 07:53 Dose: 80 mg Documented by: Levothyroxine Sodium (Synthroid) 50 mcg PO DAILYBB [facility] Stop: 01/16/19 06:29 Last Admin: 12/20/18 05:55 Dose: 50 mcg Documented by: Lisinopril (Zestril) 5 [facility] [place] Stop: 01/16/19 08:59 Last Admin: 12/20/18 07:53 Dose: 5 mg Documented by: Magnesium Hydroxide (Milk Of Magnesia) 30 ml PO Q12H PRN PRN Reason: Constipation Stop: 01/15/19 19:17 Multivitamins/Minerals (Caltrate Plus) 1 tab PO [facility] Stop: 01/16/19 08:59 Last Admin: 12/20/18 07:53 Dose: 1 tab Documented by: Ondansetron HCl (Zofran) 4 mg IV Q6H PRN PRN Reason: Nausea Stop: 01/15/19 19:17 Pantoprazole Sodium (Protonix) 40 mg PO [facility] Stop: 01/16/19 08:59 Last Admin: 12/20/18 07:53 Dose: 40 mg Documented by: Polyethylene Glycol (Miralax Powder Packet) 17 gm PO DAILY PRN PRN Reason: Constipation Stop: 01/15/19 19:17 Warfarin Sodium (Coumadin) 7.5 mg PO DAILY@1600 [facility] Stop: 01/17/19 15:59 Last Admin: 12/19/18 16:10 Dose: 7.5 mg Documented by: (1) Deep vein thrombosis (DVT) of right lower extremity Affected thrombotic vein of extremity: femoral Chronicity: acute Qualified Code(s): I82.411 - Acute embolism and thrombosis of right femoral vein (2) Hypertension Hypertension type: essential hypertension Qualified Code(s): I10 - Essential (primary) hypertension (3) HLD (hyperlipidemia) Hyperlipidemia type: unspecified Qualified Code(s): E78.5 - Hyperlipidemia, unspecified (4) Hypothyroidism Hypothyroidism type: unspecified Qualified Code(s): E03.9 - Hypothyroidism, unspecified (5) Senile dementia Dementia behavioral disturbance: without behavioral disturbance Qualified Code(s): F03.90 - Unspecified dementia without behavioral disturbance
[2018-12-20] MEDS: WARFARIN SOD 7.5 MG TAB PO SCH (15:27)
[2018-12-20 16:02] VITALS: BP 147/79; PULSE 89; TEMP 98.2; O2SAT 96
--- NOTE | 2018-12-21 08:38 | Discharge Summary ---
Date of Service December 21, 2018 Admission HPI Per Admitting Provider This is a 83-year-old female who has a significant PMH of HTN, HLD, hypothyroidism, mild dementia, osteoarthritis, vitamin D deficiency who presents to [facility] secondary to right lower extremity DVT found on outpatient ultrasound. Patient was hospitalized at [facility] 10/16-10/19 after falling while getting out of a [employer] van. She was subsequently diagnosed with a right Lisfranc fracture. On 10/17 she underwent closed reduction and pinning of fracture by Dr. Vivar. She was discharged to [facility] from 10/19-12/03 for subacute rehab. She was receiving heparin in jections for DVT prophylaxis. Injections were stopped on 12/13 after visit with PCP and switched to ASA 81 bid. Patient to follow-up in podiatry office today and when splint was removed she was noted to have increased swelling of right lower extremity and pain to right calf. She was referred for an outpatient ultrasound which revealed extensive right lower extremity DVT and was encouraged to seek ED. currently she complains of 5/10 pain to right foot but otherwise no right calf pain while at rest. She currently still has [address] and according to family will remain in place for a couple more weeks before removed and transitioned to CAM Boot. Daughter complains of dry cough and also increased memory loss. Notes she was just started on medication for dementia. She denies f/c/s, chest pain, sob, hemoptysis, n/v/d, abdominal pain, change in bowel or urinary habits. Appetite has been good. Admission Exam Per Admitting Provider Vital Signs (Past 24 Hours): Last Vital Signs Temp 37.2 C 12/16/18 14:49 Pulse 99 H 12/16/18 14:49 Resp 20 12/16/18 14:49 BP 160/91 H 12/16/18 14:49 Pulse Ox 94 12/16/18 14:49 Physical Exam: Gen: WD/WN, Elderly, F, NAD, sitting up in wheel chair, pleasant, conversing easily Head: Normocephalic, Atraumatic Eyes: Sclera normal, no conjunctival injection, PERRLA, EOMI ENT: Gross hearing intact, normal pharynx, mucous membranes moist Neck: supple, no adenopathy, No JVD, no bruit, Resp: Clear to auscultation b/l, no wheeze, rales, rhonchi. Normal insp/exp effort, no accessory muscle use CV: Regular rate, regular rhythm, no murmur, rub, gallop, or ectopy Abd: +BS x 4, soft, nontender, nondistended Musculoskeletal: moves extremities active rom x 3, strength intact, good director of casework strength, RLE splint in place, NVI distally, no erythema or redness noted, +b/l edema +1, no pain to palpation or palpable cord Extremities: +1 b/l lower ext edema bilaterally Skin: warm, moist, no rash, negative turgor, cap refill < 2sec Neuro: Alert and oriented x 3, speech normal, good mood/affect, cran nerve 2-12 intact grossly : deferred Principal Diagnosis Right lower extremity DVT, status post APR of right Lisfranc fracture, dementia, decreased mobility Discharge Exam Constitutional WD/WN, vitals as above Eyes PERRL, conjunctivae normal, anicteric sclerae ENMT external ear and nose normal, oropharynx normal Neck trachea midline, no thyromegaly Respiratory normal respiratory effort Auscultation: lungs clear to auscultation bilaterally and + diminished lung sounds Cardiovascular Rate/Rhythm: regular rate and regular rhythm Heart Sounds: normal S1 and normal S2 Gastrointestinal (Abdomen) Inspection/Auscultation: abdomen normal to inspection and normal bowel sounds Percussion/Palpation: abdomen soft; abdomen nontender Musculoskeletal Extremities: + lower extremity abnormal to inspection (Leg is bandaged in a cast) Discharge Data Allergies Allergy/AdvReac Type Severity Reaction Status Date / Time rosuvastatin Allergy Severe ITCHY Verified 12/16/18 15:13 Consultations 12/16/18 15:09 ED Decision to Admit Stat 12/16/18 19:18 Consult Case Management - Discharge Planning Routine 12/17/18 08:00 Consult Orthopedic Surgery Routine 12/19/18 11:16 Consult Case Management - Discharge Planning Routine Hospital Course (1) Deep vein thrombosis (DVT) of right lower extremity: Likely secondary to lack of movements Because of extensive clot burden involving common femoral Eliquis is not great choice though it can be used as per . Family wants to go with coumadin Continue NWB to RLE and splint care Has been on Lovenox and Coumadin INR is 1.9 on 12/19 INR is 3.3 on 12/20 We will continue Lovenox for today and hold Coumadin Discharge home this evening Discussed with patient's daughter at the bedside Will need to establish with Coumadin clinic INR is therapeutic as of today We will continue Lovenox and Coumadin tomorrow and send the patient home in the afternoon (2) Status post right foot surgery: 10/17/18 patient underwent close reduction and pinning of right Lisfranc fracture by Dr. Vivar Splint continues to be in place with 4 pins remaining NWB to RLE Supposed to take out pins but was not taken out as patient was found to have DVT Dr. Vivar consulted We will keep outpatient appointment with the grants specialist (3) Hypertension: Monitor blood pressure Improving continue lisinopril and monitor Blood pressure has been upper limit Continue current medications Blood pressure seems to be controlled (4) HLD (hyperlipidemia): heart healthy diet (5) Hypothyroidism: Continue levothyroxine (6) Osteoporosis: Continue calcium +D, Fosamax (7) Senile dementia: continue aricept mood stable Full Code Disposition: D/C to home when medically able Follow up: PCP Dr. Mackey upon discharge Will discharge home this evening after the evening dose of Lovenox Total Time Total Time Spent Total Time Spent (In Minutes): 35 minutes Total Time Includes: Examination of the Patient, Discharge Planning, Medication Reconciliation and Communication With Other Providers Discharge Plan Discharge Items Patient Disposition: Home - Home Health Services Reason For Visit: RLE DVT Discharge Diagnosis: Right lower extremity DVT, status post APR of right [place] fracture, dementia, decreased mobility Condition: Fair Discharge Goals: Decrease discomfort, Improve function and Increase independence Activity: Resume your previous activity Non-emergency contact: Primary Care Provider Call non-emergency contact if: you have any medication questions and your symptoms worsen Follow-up/Referrals: Nancy Mackey MD [Primary Care Provider] - 12/23/18 10:45 am (Your appointment will be with Dr. Frias. Dr. Mackey does not have any appointment slot) Diet: Heart Healthy Addtl Provider Instructions: Please take precaution to avoid fall. Will need to have follow-up appointment with coagulation clinic. Hold Coumadin for tonight Prescriptions: New warfarin [Coumadin] 5 mg tablet 5 mg PO DAILY Qty: 30 RF: 0 Continued alendronate [Fosamax] 70 mg Tablet 70 mg PO WK RF: 0 calcium carbonate-vitamin D3 [Oyster Shell Calcium-Vit D3] 500 mg(1,250mg) - 200 unit tablet 1 tab PO QAM RF: 0 polyethylene glycol 3350 [Miralax] 17 gram powder in packet 17 g PO UD PRN (Reason: constipation) RF: 0 acetaminophen [Pain Reliever] 500 mg tablet 500 mg PO Q4HWA PRN (Reason: Pain) RF: 0 aspirin 81 mg Tablet,Delayed Release (Dr/Ec) 81 mg PO DAILY RF: 0 donepezil [Aricept] 5 mg Tablet 5 mg PO DAILY RF: 0 meclizine 25 mg tablet 25 mg PO Q8H PRN (Reason: Nausea) RF: 0 levothyroxine 50 mcg tablet 50 mcg PO DAILYBB RF: 0 omeprazole 20 mg capsule,delayed release(DR/EC) 20 mg PO QAM RF: 0 lisinopril 5 mg tablet 5 mg PO QAM RF: 0 albuterol sulfate 90 mcg/actuation HFA aerosol inhaler 2 puff Inhalation UD PRN (Reason: Shortness Of Breath) RF: 0 Discontinued oxycodone 5 mg tablet 7.5 mg PO UD PRN (Reason: pain) RF: 0 Stand-Alone Forms: [facility]/Other Patient Handouts: Coumadin Discharge Orders: Discharge Order (Routine); Ordered 12/20/18 Ordered By: Allison Vanegas Admission Data Admit Date/Time: 12/16/18 15:43 Attending Provider: Allison Vanegas Admit Provider: Solomon Puga Primary Care Provider: Nancy Mackey Other Providers: Solomon Puga ; Shyla Vivar ; Allison Vanegas ; Matt Parkinson Service: Telemetry Medical Other Interventions: Discharge Summary Assessment (RN) Last Done: 12/20/18 15:18 DC Date/Time DO NOT enter until pt leaves facility: 12/20/18 16:43
== END 2018-12-20 16:43 | disposition home health service (06) | DRG 301 ==
LOC: ED 14:47 → 2W 15:43 → SUATTDRO 15:43 → 2W 17:30

== ENCOUNTER 2020-03-14 22:44 | Inpatient (IN) ==
--- NOTE | 2020-03-14 23:35 | Emergency Department Note ---
Impression & Plan Hypoxia, Fall, Closed head injury ED Provider Note NAME: DILLON BACH AGE: 84 SEX: F ARRIVES VIA: Walk-In INFORMANT: [Patient][,And her daughter ] ED PROVIDER(S): Lizette Copeland DO CHIEF COMPLAINT: Fall PLAN: Disposition: [facility] Condition: Stable MEDICAL DECISION MAKING: This is an 84-year-old female patient who was walking using her walker when she lost her balance and fell backwards striking the back of her head and landing on her tailbone. While here in the emergency department, the patient was noted to be hypoxic. She does have a history of PEs and her INR was found to be subtherapeutic. She had a CT scan of the chest to rule out recurrent PE and this was negative. The patient's O2 saturation drops into the low 80s with any type of movement or exercise. [facility] and [facility] will evaluate for further management. Triage Nursing notes reviewed and agree them. [Additional history obtained from] patient's daughter who is at the bedside [Prior medical records reviewed] Vital Signs: reviewed and remarkable for significantly hypertensive Differential diagnosis C-spine fracture, intracranial hemorrhage, skull fracture, cardiac dysrhythmia, anemia, electrolyte abnormality, PE Diagnostics interpreted by me: ECG: Normal sinus rhythm at [address] segment elevation or signs of ischemia and no ectopy Cardiac Monitoring: Normal sinus rhythm at 74 Laboratory studies: [See below] Imaging studies: As per stat rad CT scan of head: No acute intracranial hemorrhage, hydrocephalus, edema, mass-e ffect, or acute cortical infarct. Paranasal sinuses and mastoid air cells are clear. No fracture CT C-spine: No fracture within the cervical spine. Fusion of C4 and C5 vertebral bodies. Retrolisthesis at C5-C6 related to degenerative changes where there is severe spinal canal stenosis. CT angiogram/PE study: No pulmonary embolism or acute aortic syndrome. Scarring/atelectasis in the lower lobes. No pneumonia, edema, pleural effusion or pneumothorax. Small sliding hiatal hernia HPI: 84/F arrives for evaluation of head pain. This is an 84-year-old female patient who presents to the emergency department after suffering a fall at home. The patient uses a walker but states that her left leg gave out on her and she fell backwards striking her head. She did not lose consciousness. The patient has had an increase in falls at home. ROS: See above HPI for pertinent positives & negatives. A total of [10] systems reviewed and were otherwise negative. PAST MEDICAL HISTORY:[See Below] PAST SURGICAL HISTORY:[See Below] FAMILY HISTORY:[See Below] SOCIAL HISTORY:[See Below] HOME MEDICATIONS:See list ALLERGIES:See list VITALS:[See Below] PHYSICAL EXAMINATION: HEENT: Head - normocephalic and large hematoma noted over the midline lower occiput. Pupils are equal, round, and reactive to light. Extraocular eye muscles are intact, and sclera are anicteric. Nose - moist nasal mucosa without discharge. Mouth - moist buccal mucosa. Oropharynx is nonerythematous and there is no tonsillar exudate or edema noted. Neck: Supple; no JVD or cervical lymphadenopathy. No palpable thyromegaly Heart: Regular rate and rhythm. There is a normal S1 and S2 with no murmurs, clicks, or gallops appreciated. Lungs: Clear to auscultation bilaterally with no wheezes, rales, or rhonchi. Abdomen: Soft, completely nontender, nondistended, with good bowel sounds. There are no palpable pulsatile masses or hepatosplenomegaly. There is no guarding, rigidity, or rebound noted. Extremities: Contusions noted over the right elbow Skin: warm and dry with good turgor and no rashes. ED COURSE: Times/Reassessments: 2310: The patient was evaluated in room B6. A complete history and physical was performed. 0040: The patient was reevaluated and the results of the CT scans and laboratory studies were reviewed with the patient and her daughter who was at the bedside. The patient was noted to be somewhat hypoxic. She was placed on supplemental oxygen. She had chest x-ray performed at that time which was a bit concerning for findings over the right pulmonary artery. She will go for CT angiogram. 0120: The patient received a 500 cc bolus of normal saline solution and went for a CT scan of the chest to rule out PE. This was negative. 0235: Upon repeat evaluation of the patient and reviewed the results of the CT scan, nursing staff alerted me that the patient's O2 saturation was 83% in CT on room air. [facility] and [facility] will evaluate for further management. Lizette Copeland DO Past Med/Surg History Medical History (Updated 03/15/20 @ 02:45 by Lizette Copeland DO) GERD (gastroesophageal reflux disease) (Chronic) HLD (hyperlipidemia) (Chronic) Hypertension (Chronic) Hypothyroidism (Chronic) Lisfranc fracture (Chronic) Lisfranc fracture (Chronic) Osteoarthritis (Chronic) Osteoporosis (Chronic) Senile dementia Vertigo (Chronic) Vitamin D deficiency (Chronic) Surgical History History of cataract extraction (Chronic) History of cataract surgery History of hernia surgery (Chronic) Hx of inguinal hernia surgery Status post right foot surgery (Acute) Social History Preferred Language: Omani Communication Ability: Effective Ribbon Lapper Tender Required: No Beliefs That Will Affect Care: None marital status: / Current Living Situation: Family Current Living Situation Comment: son lives with her Other Information That Helps Us Care for You: No Feels Safe at Home: Yes Safety Concerns: Feels Safe At This Time Smoking Status: Never smoker Hx Alcohol Use: No Hx Substance Use: No Allergies Allergies Allergy/AdvReac Type Severity Reaction Status Date / Time rosuvastatin Allergy Severe ITCHY Verified 03/14/20 23:57 Home Meds Home Medications Medication Instructions Recorded Confirmed albuterol sulfate 2 puff INHALATION UD PRN 10/16/18 03/14/20 levothyroxine 50 mcg PO DAILYBB 10/16/18 03/15/20 omeprazole 20 mg PO QAM 10/16/18 03/15/20 acetaminophen [Pain Reliever] 500 mg PO Q4HWA PRN 12/16/18 03/14/20 alendronate [Fosamax] 70 mg PO WK 12/16/18 03/14/20 donepezil [Aricept] 5 mg PO DAILY 12/16/18 03/15/20 polyethylene glycol 3350 [Miralax] 17 g PO UD PRN 12/16/18 03/15/20 warfarin 2 mg PO UD 12/31/18 03/15/20 escitalopram oxalate 10 mg PO DAILY 03/15/20 03/15/20 lisinopril 2.5 mg PO DAILY 07/10/20 07/10/20 Results & Data (ED) Vital Signs Vital Signs - 24 hr 03/14/20 22:46 03/14/20 23:38 03/15/20 00:31 Temperature 37 C Temperature Source Oral Pulse Rate 93 H 70 77 Pulse Rate [Apical] Pulse Rate from SpO2 Sensor 74 Pulse Rhythm Regular Respiratory Rate 18 16 17 Respiratory Effort / Characteristics Non-Labored Respiratory Depth Normal Respiratory Pattern Regular Blood Pressure 176/96 H 203/102 H Blood Pressure [Right Arm] Blood Pressure Mean 122 150 Blood Pressure Mean [Right Arm] Pulse Oximetry 90 95 94 Oxygen Delivery Method Room Air Nasal Cannula Oxygen Flow Rate 2 Sepsis Recent Fever Within 48 Hours No Sepsis Action Taken by Nursing No Action Required 03/15/20 01:00 03/15/20 01:05 03/15/20 01:42 Temperature Temperature Source Pulse Rate 77 74 84 Pulse Rate [Apical] Pulse Rate from SpO2 Sensor 77 70 84 Pulse Rhythm Respiratory Rate 20 19 20 Respiratory Effort / Characteristics Respiratory Depth Respiratory Pattern Blood Pressure 214/125 H 209/97 H 220/104 H Blood Pressure [Right Arm] Blood Pressure Mean 158 109 109 Blood Pressure Mean [Right Arm] Pulse Oximetry 95 97 94 Oxygen Delivery Method Oxygen Flow Rate Sepsis Recent Fever Within 48 Hours Sepsis Action Taken by Nursing 03/15/20 02:00 03/15/20 02:30 03/15/20 03:00 Temperature Temperature Source Pulse Rate 85 84 86 Pulse Rate [Apical] Pulse Rate from SpO2 Sensor 88 83 Pulse Rhythm Respiratory Rate 18 21 19 Respiratory Effort / Characteristics Respiratory Depth Respiratory Pattern Blood Pressure 215/117 H 210/98 H 217/124 H Blood Pressure [Right Arm] Blood Pressure Mean 144 124 155 Blood Pressure Mean [Right Arm] Pulse Oximetry 94 94 Oxygen Delivery Method Nasal Cannula Oxygen Flow Rate 2.5 Sepsis Recent Fever Within 48 Hours Sepsis Action Taken by Nursing 03/15/20 03:39 Temperature Temperature Source Pulse Rate 80 Pulse Rate [Apical] 81 Pulse Rate from SpO2 Sensor 83 Pulse Rhythm Respiratory Rate 24 Respiratory Effort / Characteristics Respiratory Depth Respiratory Pattern Blood Pressure 177/95 H Blood Pressure [Right Arm] 177/95 H Blood Pressure Mean 132 Blood Pressure Mean [Right Arm] 122 Pulse Oximetry 95 Oxygen Delivery Method Nasal Cannula Oxygen Flow Rate 2 Sepsis Recent Fever Within 48 Hours Sepsis Action Taken by Nursing Laboratory Data Result diagrams: 03/14/20 23:40 03/14/20 23:40 Lab Results 03/14/20 03/14/20 03/14/20 Range/Units 23:40 23:40 23:40 WBC 9.85 (4.8-10.8) K/uL RBC 3.64 L (4.2-5.4) M/uL Hgb 12.1 (12.0-16.0) g/dL Hct 36.6 L (37-47) % MCV 100.5 H (80-100) fL MCH 33.2 (25-34) pg MCHC 33.1 (32-36) g/dL RDW Std Deviation 52.9 H (36.4-46.3) fL RDW Coeff of Alea 14.4 (11.5-14.5) % Plt Count 200 (130-400) K/uL MPV 10.6 H (7.4-10.4) fL Immature Gran % (Auto) 0.5 % Neut % (Auto) 75.0 % Lymph % (Auto) 15.2 % [place] % (Auto) 7.3 % Eos % (Auto) 1.6 % Baso % (Auto) 0.4 % Neut # (Auto) 7.38 H (1.4-6.5) K/uL Lymph # (Auto) 1.50 (1.2-3.4) K/uL [place] # (Auto) 0.72 H (0.11-0.59) K/uL Eos # (Auto) 0.16 (0-0.5) K/uL Baso # (Auto) 0.04 (0-0.2) K/uL Immature Gran # (Auto) 0.05 H (0.00-0.02) K/uL PT 18.1 H (9.0-12.0) Seconds INR 1.8 H (0.9-1.1) Sodium 145 (136-145) mmol/L Potassium 3.8 (3.5-5.1) mmol/L Chloride 110 H (98-107) mmol/L Carbon Dioxide 29 (21-32) mmol/L Anion Gap 6.0 (3-11) BUN 30 H (7-18) mg/dl Creatinine 1.19 (0.6-1.2) mg/dl Est Cr Clr Drug Dosing Not Reportable Est GFR ( Amer) 48.9 Est GFR (Non-Af Amer) 42.2 BUN/Creatinine Ratio 25.5 H (10-20) Glucose 114 H (70-99) mg/dl Calcium 9.3 (8.5-10.1) mg/dl Total Bilirubin 0.4 (0.2-1) mg/dl AST 20 (15-37) U/L ALT 22 (12-78) U/L Alkaline Phosphatase 68 (45-117) U/L Total Protein 7.5 (6.4-8.2) gm/dl Albumin 3.2 L (3.4-5.0) gm/dl Globulin 4.3 H (2.5-4.0) gm/dl Albumin/Globulin Ratio 0.7 L (0.9-2) TSH 4.710 H (0.300-4.500) uIu/ml Free T4 0.95 (0.8-1.6) ng/dl Urine Color Urine Appearance (Clear) Urine pH (4.5-7.5) Ur Specific [place] (1.000-1.030) Urine Protein (Negative) Urine Glucose (UA) (Negative) Urine Ketones (Negative) Urine Blood (Negative) Urine Nitrite (Negative) Urine Bilirubin (Negative) Urine Urobilinogen (Negative) Ur Leukocyte Esterase (Negative) Urine WBC (Auto) (0-5) /hpf Urine RBC (Auto) (0-4) /hpf U Hyaline Cast (Auto) (0-5) /lpf U Epithel Cells (Auto) (0-5) /lpf Urine Bacteria (Auto) (Negative) 03/15/20 Range/Units 00:45 WBC (4.8-10.8) K/uL RBC (4.2-5.4) M/uL Hgb (12.0-16.0) g/dL Hct (37-47) % MCV (80-100) fL MCH (25-34) pg MCHC (32-36) g/dL RDW Std Deviation (36.4-46.3) fL RDW Coeff of Alea (11.5-14.5) % Plt Count (130-400) K/uL MPV (7.4-10.4) fL Immature Gran % (Auto) % Neut % (Auto) % Lymph % (Auto) % [place] % (Auto) % Eos % (Auto) % Baso % (Auto) % Neut # (Auto) (1.4-6.5) K/uL Lymph # (Auto) (1.2-3.4) K/uL [place] # (Auto) (0.11-0.59) K/uL Eos # (Auto) (0-0.5) K/uL Baso # (Auto) (0-0.2) K/uL Immature Gran # (Auto) (0.00-0.02) K/uL PT (9.0-12.0) Seconds INR (0.9-1.1) Sodium (136-145) mmol/L Potassium (3.5-5.1) mmol/L Chloride (98-107) mmol/L Carbon Dioxide (21-32) mmol/L Anion Gap (3-11) BUN (7-18) mg/dl Creatinine (0.6-1.2) mg/dl Est Cr Clr Drug Dosing Est GFR ( Amer) Est GFR (Non-Af Amer) BUN/Creatinine Ratio (10-20) Glucose (70-99) mg/dl Calcium (8.5-10.1) mg/dl Total Bilirubin (0.2-1) mg/dl AST (15-37) U/L ALT (12-78) U/L Alkaline Phosphatase (45-117) U/L Total Protein (6.4-8.2) gm/dl Albumin (3.4-5.0) gm/dl Globulin (2.5-4.0) gm/dl Albumin/Globulin Ratio (0.9-2) TSH (0.300-4.500) uIu/ml Free T4 (0.8-1.6) ng/dl Urine Color Yellow Urine Appearance Clear (Clear) Urine pH 6.5 (4.5-7.5) Ur Specific [place] 1.018 (1.000-1.030) Urine Protein Negative (Negative) Urine Glucose (UA) Negative (Negative) Urine Ketones Negative (Negative) Urine Blood Negative (Negative) Urine Nitrite Negative (Negative) Urine Bilirubin Negative (Negative) Urine Urobilinogen Negative (Negative) Ur Leukocyte Esterase 1+ H (Negative) Urine WBC (Auto) 5-10 H (0-5) /hpf Urine RBC (Auto) 0-4 (0-4) /hpf U Hyaline Cast (Auto) 1-5 (0-5) /lpf U Epithel Cells (Auto) 10-20 H (0-5) /lpf Urine Bacteria (Auto) Negative (Negative) Administered Medications Sodium Chloride (Nss 1000ml) 1,000 mls @ 75 mls/hr IV .[id number] ALENA Stop: 03/15/20 12:30 Last Admin: 03/15/20 06:38 Dose: 75 mls/hr Documented by: [id number] Discontinued Medications Sodium Chloride (Nss) 500 mls @ 999 mls/hr IV .[id number] Stop: 03/15/20 01:14 Last Infusion: 03/15/20 02:15 Dose: 0 mls/hr Documented by: [id number] Admin: 03/15/20 01:35 Dose: 999 mls/hr Documented by: [id number] Ioversol (Optiray 320 125ml) 125 ml IV ONCE PRN PRN Reason: Interaction Checking Stop: 03/19/20 01:37 Last Admin: 03/15/20 01:38 Dose: 96 ml Documented by: [id number] Discharge Plan Visit Data *Final* Discharge Date/Time: 03/15/20 04:38 Chief Complaint: Fall Stated Complaint: FELL,NECK,SPINE PAIN ED Provider: Lizette Copeland Discharge Problem: Hypoxia, Fall, Closed head injury Patient Disposition: Admitted As Inpatient Discharge Instructions Interventions: ED Discharge Assessment Last Done: 03/15/20 04:38 Discharge Problem: Fall Qualifiers: Encounter type: initial encounter Qualified Code(s): W19.XXXA - Unspecified fall, initial encounter Closed head injury Qualifiers: Encounter type: initial encounter Qualified Code(s): S09.90XA - Unspecified injury of head, initial encounter
[2020-03-14 23:57] LABS: Basophils # (auto) 0.04 K/uL (0-0.2); Basophils % (auto) 0.4 %; Eosinophils # (auto) 0.16 K/uL (0-0.5); Eosinophils % (auto) 1.6 %; Hematocrit (blood only) 36.6 % (37-47); Hemoglobin 12.1 g/dL (12.0-16.0); Immature Granulocytes # (auto) 0.05 K/uL (0.00-0.02); Immature Granulocytes % (auto) 0.5 %; Lymphocytes % (auto) 15.2 %; Mean Corpuscular Hemoglobin 33.2 pg (25-34); Mean Corpuscular Hgb Conc 33.1 g/dL (32-36); Mean Corpuscular Volume 100.5 fL (80-100); Mean Platelet Volume 10.6 fL (7.4-10.4); Monocytes # (auto) 0.72 K/uL (0.11-0.59); Monocytes % (auto) 7.3 %; Neutrophils # (auto) 7.38 K/uL (1.4-6.5); Platelet Count 200 K/uL (130-400); RDW Coefficient of Variation 14.4 % (11.5-14.5); RDW Standard Deviation 52.9 fL (36.4-46.3); Red Blood Count 3.64 M/uL (4.2-5.4); White Blood Count 9.85 K/uL (4.8-10.8)
[2020-03-15 00:05] LABS: INR 1.8 (0.9-1.1); Prothrombin Time 18.1 Seconds (9.0-12.0)
[2020-03-15 00:19] LABS: Alanine Aminotransferase 22 U/L (12-78); Albumin Level 3.2 gm/dl (3.4-5.0); Aspartate Aminotransferase 20 U/L (15-37); BUN Creatinine Ratio 25.5 (10-20); Blood Urea Nitrogen 30 mg/dl (7-18); Calcium 9.3 mg/dl (8.5-10.1); Carbon Dioxide 29 mmol/L (21-32); Chloride 110 mmol/L (98-107); Est GFR (African American) 48.9; Est GFR (Non-African American) 42.2; Glucose 114 mg/dl (70-99); Potassium 3.8 mmol/L (3.5-5.1); Sodium 145 mmol/L (136-145)
[2020-03-15 00:30] LABS: Albumin Globulin Ratio 0.7 (0.9-2); Alkaline Phosphatase 68 U/L (45-117); Bilirubin,Total 0.4 mg/dl (0.2-1); Globulin 4.3 gm/dl (2.5-4.0); Total Protein 7.5 gm/dl (6.4-8.2)
[2020-03-15 00:43] LABS: T4 Free Thyroxine 0.95 ng/dl (0.8-1.6)
[2020-03-15] MEDS ORDERED: SODIUM CHLORIDE 0.9% 500 ML IV ONE (00:44)
[2020-03-15 00:59] LABS: Appearance Urine Clear (Clear); Bacteria Urine Automated Negative (Negative); Bilirubin Urine Negative (Negative); Blood Urine Negative (Negative); Color Urine Yellow; Glucose Urine UA Negative (Negative); Ketones Urine Negative (Negative); Leukocyte Esterase Urine 1+ (Negative); Nitrite Urine Negative (Negative); Protein Urine Negative (Negative); RBC Urine Automated 0-4 /hpf (0-4); Specific Gravity Urine 1.018 (1.000-1.030); Urobilinogen Urine Negative (Negative); pH Urine 6.5 (4.5-7.5)
[2020-03-15] MEDS ORDERED: OPTIRAY 320 125ml IV PRN (01:38)
[2020-03-15] MEDS ORDERED: NITROGLYCERIN SL 0.4 MG/TAB TAB SL PRN (05:24)
[2020-03-15] MEDS ORDERED: SODIUM CHLORIDE 0.9% 1000ML 1,000 ML IV SCH (05:24)
[2020-03-15] MEDS ORDERED: ACETAMINOPHEN 325 MG TAB PO PRN (05:24)
[2020-03-15] MEDS ORDERED: ONDANSETRON INJ 2 MG/ML 2 ML VIAL IV PRN (05:24)
[2020-03-15] MEDS ORDERED: ALBUTEROL HFA 8 GM INHALER INH PRN (05:24)
[2020-03-15] MEDS ORDERED: POLYETHYLENE (MIRALAX) 17 GM PACK PO PRN (05:24)
--- NOTE | 2020-03-15 06:17 | History and Physical Report ---
DATE OF ADMISSION: 03/15/2020 CHIEF COMPLAINT: Status post fall. HISTORY OF PRESENT ILLNESS: This is an 84-year-old female with past medical history significant for hypothyroidism, hyperlipidemia, prediabetes, allergic rhinitis, history of bilateral DVT and small PE, hypertension, chronic kidney disease stage III, GERD, vitamin D deficiency, nephrolithiasis, osteoarthritis of the knees, essential tremor, Alzheimer disease, who lives with her son, was brought in because of fall. The patient says she was in the kitchen table when she lost balance and fell backwards and hit the back of the head, no loss of consciousness. She was able to get up. She uses walker for ambulation and she called one of the daughters and she was brought in here. The patient is currently hemodynamically stable, somewhat hard of hearing. Daughter is in the room who assisted with H and P. The patient says she has some soreness in the back of the head, some soreness in the tailbone. Imaging studies in the ER were unremarkable. The patient was having some hypoxia on room air in the ER and in the CAT scan room also she was 83% on room air, that is why we were called for admission. With oxygen she is saturating fine. Denies any chest pain, occasional cough which is chronic. She is always short of breath. No chest pain, no fever, no chills, no headache, no blurred vision, no runny nose, no sore throat, no difficulty swallowing. She is on a regular diet. Appetite is okay. No nausea, no abdominal pain. Normal bowel and bladder movements. There is diagnosis of obstructive sleep apnea on the Epic chart, but as per daughter, she was never tested. She has a history of Lisfranc fracture. She used to use brace but she is no longer using it. ALLERGIES: CRESTOR. PAST MEDICAL HISTORY: As mentioned above. PAST SURGICAL HISTORY: Cataract surgeries, femoral hernia repair, right closed reduction of multiple foot fractures of the right 2nd, 3rd, 4th, and cuboid tarsometatarsal joints, reduction of Lisfranc joint, right foot. MEDICATIONS: The patient is on levothyroxine 50 mcg p.o. daily, Coumadin as directed, Lexapro 10 mg p.o. daily, lisinopril 2.5 mg daily, Fosamax 70 mg once weekly, Aricept 5 mg p.o. daily, omeprazole 20 mg p.o. daily, albuterol 2 puffs inhalation q. 4 hours p.r.n., calcium, vitamin D 1 tablet b.i.d. FAMILY HISTORY: Significant for brother had cancer; father had cancer; mother has heart disorder, hypertension; sister has hypertension. SOCIAL HISTORY: , lives with her son. No smoking, no alcohol, no drug use. REVIEW OF SYSTEMS: As per HPI. Rest of the review of systems negative. PHYSICAL EXAMINATION: GENERAL: The patient is old and frail, not in acute distress. VITAL SIGNS: Temperature 37, pulse 80, respiratory rate 24, blood pressure 177/95, oxygen 95% on 2 liters, currently 83% on room air. HEENT: No pallor, no icterus. Pupils equal, round, reactive to light. NECK: No JVD, no neck masses, no carotid bruits. CARDIOVASCULAR: S1, S2 heard, regular rate and rhythm, no murmur, no gallop. RESPIRATORY SYSTEM: Normal AP diameter. No accessory muscle use. No wheezing, no crackles. ABDOMEN: Soft, bowel sounds present, nontender. No distention. CENTRAL NERVOUS SYSTEM: Cranial nerves II-XII grossly intact, nonfocal. EXTREMITIES: No edema, no erythema. LABORATORY DATA: WBC 9.8, hemoglobin 12.1, hematocrit 36.6, platelets 200. PT 18.1, INR 1.8. Sodium 145, potassium 3.8, chloride 110, CO2 of 29, BUN 30, creatinine 1.1, serum glucose 114, calcium 9.3, total bilirubin 0.4, AST 20, ALT 22, alkaline phosphatase 68. TSH 4.7, free T4 of 0.8. Urinalysis, +1 leukocyte esterase. IMAGING DATA: Cervical spine CT, no acute fracture seen. CT head, no acute findings seen. Chest x-ray, no acute findings seen. Chest CTA, no acute findings. EKG: Normal sinus rhythm at a rate of 70, nonspecific T-wave abnormality seen. ASSESSMENT AND PLAN: This is an 84-year-old female who presents with a fall. 1. Mechanical fall. The patient lost balance and fell and hit the back of the head. All the imaging studies are unremarkable. We will do PT and OT prior to discharge. 2. Hypoxia. The patient was hypoxic in the ER in the room air and then also during the CAT scan, she was 83% on room air. There is a diagnosis of obstructive sleep apnea on the Epic chart, but as per daughter, she does not know if she was tested or not. The patient has history of bilateral deep venous thrombosis and small pulmonary embolism in the past and she is on Coumadin. INR is subtherapeutic at 1.8, but on the CTA of the chest done in the ER, there is no PE. The patient is always short of breath at home .Will do nocturnal pulse ox study while she in the hospital. May need to do 2-step prior to discharge and follow up with the PCP. 3. Ambulatory dysfunction, uses walker at home. PT and OT before discharge. 4. Prediabetes. We will do diabetic diet and will follow HbA1c levels. 5. Hypertension. Continue lisinopril. 6. History of bilateral lower extremity deep venous thrombosis and pulmonary embolism, on Coumadin. Follow INR. 7. Hypothyroidism, on Synthroid. 8. Alzheimer disease, on Aricept. 9. Deep venous thrombosis prophylaxis, on Coumadin. Will follow INR. DISPOSITION: Admit to med tele. PT and OT prior to discharge. Social service to help with discharge planning. CODE STATUS: Full code as per my discussion with the daughter. EDGARDO
--- NOTE | 2020-03-15 06:41 | CT Scan Report ---
CT head/brain wo con CLINICAL HISTORY: 84 years-old Female with fall. Acute head injury status post fall TECHNIQUE: Multiple axial CT images of the head were obtained without contrast. A dose lowering tech nique was utilized adhering to the principles of ALARA. COMPARISON: CT cervical spine of same day, head CT 02/29/2016. FINDINGS: No acute intracranial hemorrhage, midline shift, intracranial mass, hydrocephalus, territorial ischem ia or abnormal extra-axial collection. Mild age-related involutional changes. Mild patchy white matte r hypodensities suggest chronic microvascular ischemic disease. Cerebral vascular calcifications. The calvarium is intact. Prior bilateral lens replacement. The paranasal sinuses, mastoid air cells, and middle ear cavities are clear. IMPRESSION: No acute intracranial abnormality or calvarial fracture. ACT 112: Negative or not required by law. The above report was generated using voice recognition software. It may contain grammatical, syntax o r spelling errors. Electronically signed by: Chavez Nichole M.D. 03/15/2020 6:39 AM
--- NOTE | 2020-03-15 06:57 | CT Scan Report ---
CT cervical spine wo con CT DOSE: 856.56 mGy.cm HISTORY: Trauma. Pain. fall TECHNIQUE: Multiaxial CT images of the cervical spine were performed and reformatted in the sagittal and coronal plane without the use of contrast. A dose lowering technique was utilized adhering to th e principles of ALARA. COMPARISON: None. FINDINGS: Degenerative change throughout the entire cervical region. Findings consistent with a C4-C5 fusion. Grade 1 retrolisthesis C5 on C6 most likely degenerative. No evidence for an acute compression deformity. IMPRESSION: Degenerative change. No acute process. ACT 112: Negative or not required by law. The above report was generated using voice recognition software. It may contain grammatical, syntax or spelling errors. Electronically signed by: Yusuf Weller M.D. 03/15/2020 6:55 AM
--- NOTE | 2020-03-15 06:59 | CT Scan Report ---
CT angio chest PE protocol CT DOSE: 299.91 mGy.cm HISTORY: Chest pain. Dyspnea. PE TECHNIQUE: Multiaxial CT images of the chest were performed following the intravenous administration of contrast to evaluate the pulmonary arteries. Maximal intensity projection images were also obtaine d. A dose lowering technique was utilized adhering to the principles of ALARA. COMPARISON STUDY: None. FINDINGS: There is a normal caliber thoracic aorta with no evidence for dissection. There is no evide nce for pulmonary embolus. No pleural effusions. No pneumothorax. The liver and spleen are unremarkab le. No mediastinal or hilar lymphadenopathy. The central airways are patent. The lungs are clear. IMPRESSION: No evidence for pulmonary embolus. The lungs are clear. Small hiatal hernia. ACT 112: Negative or not required by law. The above report was generated using voice recognition software. It may contain grammatical, syntax or spelling errors. Electronically signed by: Yusuf Weller M.D. 03/15/2020 6:57 AM
--- NOTE | 2020-03-15 07:10 | XRay Report ---
XR chest 1V portable CLINICAL HISTORY: hyhpoxia dyspnea COMPARISON STUDY: 12/31/2018 FINDINGS: The bones soft tissues and hemidiaphragms are normal. The cardiomediastinal silhouette is n ormal. The lungs are clear. The pulmonary vasculature is normal. IMPRESSION: Negative chest. ACT 112: Negative or not required by law. The above report was generated using voice recognition software. It may contain grammatical, syntax or spelling errors. Electronically signed by: Yusuf Weller M.D. 03/15/2020 7:08 AM
[2020-03-15] MEDS: DONEPEZIL HCL 5 MG TAB PO SCH (07:57)
[2020-03-15] MEDS: LEVOTHYROXINE SODIUM 50 MCG TABLET PO SCH (07:57)
[2020-03-15] MEDS: PANTOprazole 40 MG TAB PO SCH (07:58)
[2020-03-15] MEDS: ESCITALOPRAM OXALATE 10 MG TAB PO SCH (07:58)
--- NOTE | 2020-03-15 14:38 | Hospitalist Progress Note ---
Date of Service March 15, 2020 Assessment & Plan (1) Fall: Been having mechanical fall when her left knee gave way No loss of consciousness and no serious injury Has been feeling much better this morning Appreciate PT and OT evaluation-recommended home (2) Hypoxia: Remote history of sleep apnea noted in epic but the patient is not aware CTA did not show any evidence of PE and/or infiltration Will have nocturnal pulse oximetry Remains stable and saturating well on room air Nocturnal pulse oximetry showed that she will require oxygen at nighttime We will get to do steps O2 saturation before discharging home probably today (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 (4) Deep vein thrombosis (DVT) of right lower extremity: INR is 1.8 We will continue Coumadin (5) Osteoarthritis: Has osteoarthritic changes involving the hands and feet Occasional pain in the knee joint likely secondary to osteoarthritis No acute arthritis involving any joints (6) Hypertension: Blood pressure is well controlled Admission and Anticipated Discharge Date Admission Date: March 15, 2020 Subjective The patient was seen and examined in the medical floor She is 84-year-old lady with significant past medical history including CKD, history of DVT and PE on Coumadin and was admitted with mechanical fall early this morning Complains some pain in the left knee but otherwise denies any symptoms No dizziness, blurred vision, pain in the palpitation before the fall and no loss of consciousness following fall 03/16/2020 Patient was seen and examined in medical floor She has been feeling a lot better and complains to have tiredness and fatigue Denies any significant pain and has been ambulating reasonably well Review of Systems Review of Systems: All systems reviewed and are unremarkable except as noted below Musculoskeletal: Minimal pain involving the left knee joint Physical Exam Physical Exam: Sitting on a chair without any acute distress Constitutional: well developed, well nourished and + obese; no acute distress and not ill appearing Eyes: PERRL, conjunctivae normal, anicteric sclerae ENMT: external ear and nose normal, oropharynx normal Neck: trachea midline, no thyromegaly Respiratory: normal respiratory effort; no respiratory distress Auscultation: lungs clear to auscultation bilaterally Cardiovascular: Rate/Rhythm: regular rate and regular rhythm Heart Sounds: no murmur Gastrointestinal (Abdomen): Inspection/Auscultation: abdomen normal to inspection Percussion/Palpation: abdomen soft; abdomen nontender Musculoskeletal: As above osteoarthritic changes involving the hands and feet but no acute arthritis involving any joints. Left knee examination did not show any obvious bruising and/or fluid in the knee joint Neurologic: Alert, awake and oriented x3 Results & Data Results & Data ([facility]) Vital Signs (Past 12 Hours) Vital Signs Temp Pulse Pulse Pulse Resp BP BP 03/15/20 13:31 36.3 C L 80 18 122/67 03/15/20 07:45 70 03/15/20 07:30 37.2 C 63 18 162/82 H 03/15/20 05:52 37.0 C 68 18 03/15/20 05:35 73 03/15/20 04:30 87 18 03/15/20 03:39 80 81 24 177/95 H 03/15/20 03:00 86 19 217/124 H 03/15/20 02:30 84 21 210/98 H BP Pulse Ox 03/15/20 13:31 92 03/15/20 07:45 03/15/20 07:30 97 03/15/20 05:52 181/78 H 96 03/15/20 05:35 03/15/20 04:30 167/92 H 95 03/15/20 03:39 177/95 H 95 03/15/20 03:00 94 03/15/20 02:30 94 Laboratory Results Short CBC 03/14/20 Range/Units 23:40 WBC 9.85 (4.8-10.8) K/uL Hgb 12.1 (12.0-16.0) g/dL Hct 36.6 L (37-47) % Plt Count 200 (130-400) K/uL BMP 03/14/20 23:40 Sodium 145 Potassium 3.8 Chloride 110 H Carbon Dioxide 29 BUN 30 H Creatinine 1.19 Glucose 114 H Calcium 9.3 Liver Function 03/14/20 Range/Units 23:40 Total Bilirubin 0.4 (0.2-1) mg/dl AST 20 (15-37) U/L ALT 22 (12-78) U/L Alkaline Phosphatase 68 (45-117) U/L Albumin 3.2 L (3.4-5.0) gm/dl Urine 03/15/20 Range/Units 00:45 Urine Color Yellow Urine Appearance Clear (Clear) Urine pH 6.5 (4.5-7.5) Ur Specific [place] 1.018 (1.000-1.030) Urine Protein Negative (Negative) Urine Glucose (UA) Negative (Negative) Short CBC 03/16/20 Range/Units 07:37 WBC 7.02 (4.8-10.8) K/uL Hgb 11.2 L (12.0-16.0) g/dL Hct 35.4 L (37-47) % Plt Count 183 (130-400) K/uL BMP 03/16/20 07:37 Sodium 141 Potassium 4.1 Chloride 108 H Carbon Dioxide 28 BUN 21 H Creatinine 0.92 Glucose 91 Calcium 8.4 L Medications Administered Current Inpatient Medications Acetaminophen (Tylenol) 650 mg PO Q4H PRN PRN Reason: Pain or Fever Stop: 04/14/20 05:23 Albuterol (Ventolin Hfa) 2 puffs INH DAILY PRN PRN Reason: Shortness Of Breath Stop: 04/14/20 05:23 Alendronate Sodium (Fosamax) 70 mg PO Sung@0630 [facility] Stop: 04/16/20 06:29 Donepezil HCl (Aricept) 5 mg PO DAILY [facility] Stop: 04/14/20 08:59 Last Admin: 03/15/20 07:57 Dose: 5 mg Documented by: Escitalopram Oxalate (Lexapro Tab) 10 mg PO DAILY [facility] Stop: 04/14/20 08:59 Last Admin: 03/15/20 07:58 Dose: 10 mg Documented by: Levothyroxine Sodium (Synthroid) 50 mcg PO DAILYBB [facility] Stop: 04/14/20 06:29 Last Admin: 03/15/20 07:57 Dose: 50 mcg Documented by: Lisinopril (Zestril) 2.5 mg PO DAILY [facility] Stop: 04/14/20 08:59 Last Admin: 03/15/20 07:57 Dose: 2.5 mg Documented by: Nitroglycerin (Nitrostat) 0.4 mg SL UD PRN PRN Reason: Chest Pain Stop: 04/14/20 05:23 Ondansetron HCl (Zofran) 4 mg IV Q6H PRN PRN Reason: Nausea Stop: 04/14/20 05:23 Pantoprazole Sodium (Protonix) 40 mg PO QAM [facility] Stop: 04/14/20 08:59 Last Admin: 03/15/20 07:58 Dose: 40 mg Documented by: Polyethylene Glycol (Miralax Powder Packet) 17 gm PO DAILY PRN PRN Reason: Constipation Stop: 04/14/20 05:23 Warfarin Sodium (Coumadin) 2 mg PO DAILY@1600 [facility] Stop: 04/14/20 15:59 (1) Senile dementia Dementia behavioral disturbance: without behavioral disturbance Qualified Code(s): F03.90 - Unspecified dementia without behavioral disturbance (2) Deep vein thrombosis (DVT) of right lower extremity Affected thrombotic vein of extremity: femoral Chronicity: acute Qualified Code(s): I82.411 - Acute embolism and thrombosis of right femoral vein (3) Hypertension Hypertension type: essential hypertension Qualified Code(s): I10 - Essential (primary) hypertension (4) Fall Encounter type: initial encounter Qualified Code(s): W19.XXXA - Unspecified fall, initial encounter
[2020-03-15] MEDS: WARFARIN SOD 2 MG TAB PO SCH (17:18)
[2020-03-16] MEDS: LEVOTHYROXINE SODIUM 50 MCG TABLET PO SCH (06:40)
--- NOTE | 2020-03-16 07:04 | Electrocardiogram Report ---
Test Reason : Blood Pressure : / mmHG Vent. Rate : 070 BPM Atrial Rate : 070 BPM P-R Int : 150 ms QRS Dur : 092 ms QT Int : 400 ms P-R-T Axes : 063 050 073 degrees QTc Int : 432 ms Normal sinus rhythm Nonspecific T wave abnormality Abnormal ECG When compared with ECG of 31-DEC-2018 11:27, Premature atrial complexes are no longer Present Confirmed by Gagan Arellano ([id number]) on 03/16/2020 7:04:02 AM Referred By: REFERRED SELF Confirmed By:Gagan Arellano
[2020-03-16] MEDS: ESCITALOPRAM OXALATE 10 MG TAB PO SCH (07:54)
[2020-03-16] MEDS: PANTOprazole 40 MG TAB PO SCH (07:54)
[2020-03-16] MEDS: DONEPEZIL HCL 5 MG TAB PO SCH (07:54)
[2020-03-16 08:07] LABS: Basophils # (auto) 0.04 K/uL (0-0.2); Basophils % (auto) 0.6 %; Eosinophils # (auto) 0.36 K/uL (0-0.5); Eosinophils % (auto) 5.1 %; Hematocrit (blood only) 35.4 % (37-47); Hemoglobin 11.2 g/dL (12.0-16.0); Immature Granulocytes # (auto) 0.01 K/uL (0.00-0.02); Immature Granulocytes % (auto) 0.1 %; Lymphocytes # (auto) 1.12 K/uL (1.2-3.4); Mean Corpuscular Hemoglobin 31.9 pg (25-34); Mean Corpuscular Hgb Conc 31.6 g/dL (32-36); Mean Corpuscular Volume 100.9 fL (80-100); Mean Platelet Volume 10.5 fL (7.4-10.4); Monocytes # (auto) 0.84 K/uL (0.11-0.59); Neutrophils # (auto) 4.65 K/uL (1.4-6.5); Neutrophils % (auto) 66.2 %; Platelet Count 183 K/uL (130-400); RDW Coefficient of Variation 14.5 % (11.5-14.5); Red Blood Count 3.51 M/uL (4.2-5.4); White Blood Count 7.02 K/uL (4.8-10.8)
[2020-03-16 08:15] LABS: INR 1.9 (0.9-1.1); Prothrombin Time 19.3 Seconds (9.0-12.0)
[2020-03-16 08:33] LABS: BUN Creatinine Ratio 22.7 (10-20); Calcium 8.4 mg/dl (8.5-10.1); Creatinine Clr Calc Pharmacy 49.2 ml/min; Est GFR (African American) 66.7; Est GFR (Non-African American) 57.6; Magnesium 1.9 mg/dl (1.8-2.4); Potassium 4.1 mmol/L (3.5-5.1)
[2020-03-16 09:21] LABS: Estimated Average Glucose 131 mg/dl; Hemoglobin A1C 6.2 % (4.5-5.6)
[2020-03-16] MEDS: WARFARIN SOD 2 MG TAB PO SCH (16:34)
--- NOTE | 2020-03-16 16:50 | Hospitalist Progress Note ---
Date of Service March 16, 2020 Assessment & Plan (1) Fall: Been having mechanical fall when her left knee gave way No loss of consciousness and no serious injury Has been feeling much better this morning Appreciate PT and OT evaluation-recommended home (2) Hypoxia: Remote history of sleep apnea noted in epic but the patient is not aware CTA did not show any evidence of PE and/or infiltration Will have nocturnal pulse oximetry Remains stable and saturating well on room air Nocturnal pulse oximetry showed that she will require oxygen at nighttime We will get to do steps O2 saturation before discharging home probably today (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 (4) Deep vein thrombosis (DVT) of right lower extremity: INR is 1.8 We will continue Coumadin (5) Osteoarthritis: Has osteoarthritic changes involving the hands and feet Occasional pain in the knee joint likely secondary to osteoarthritis No acute arthritis involving any joints (6) Hypertension: Blood pressure is well controlled Admission and Anticipated Discharge Date Admission Date: March 15, 2020 Subjective The patient was seen and examined in the medical floor She is 84-year-old lady with significant past medical history including CKD, history of DVT and PE on Coumadin and was admitted with mechanical fall early this morning Complains some pain in the left knee but otherwise denies any symptoms No dizziness, blurred vision, pain in the palpitation before the fall and no loss of consciousness following fall 03/16/2020 Patient was seen and examined in medical floor She has been feeling a lot better and complains to have tiredness and fatigue Denies any significant pain and has been ambulating reasonably well Review of Systems Review of Systems: All systems reviewed and are unremarkable except as noted below Musculoskeletal: Minimal pain involving the left knee joint Physical Exam Physical Exam: Sitting on a chair without any acute distress Constitutional: well developed, well nourished and + obese; no acute distress and not ill appearing Eyes: PERRL, conjunctivae normal, anicteric sclerae ENMT: external ear and nose normal, oropharynx normal Neck: trachea midline, no thyromegaly Respiratory: normal respiratory effort; no respiratory distress Auscultation: lungs clear to auscultation bilaterally Cardiovascular: Rate/Rhythm: regular rate and regular rhythm Heart Sounds: no murmur Gastrointestinal (Abdomen): Inspection/Auscultation: abdomen normal to inspection Percussion/Palpation: abdomen soft; abdomen nontender Results & Data Results & Data ([facility]) Vital Signs (Past 12 Hours) Vital Signs Temp Pulse Pulse Pulse Pulse Pulse Pulse 03/16/20 15:59 03/16/20 15:53 67 03/16/20 15:39 36.6 C 66 03/16/20 15:38 97 H 92 H 77 71 03/16/20 11:40 36.9 C 64 03/16/20 07:35 60 03/16/20 07:21 36.8 C 60 Resp Resp Resp Resp Resp BP BP 03/16/20 15:59 176/94 H 03/16/20 15:53 03/16/20 15:39 18 194/83 H 03/16/20 15:38 20 20 16 16 03/16/20 11:40 18 153/81 H 03/16/20 07:35 03/16/20 07:21 18 170/98 H Pulse Ox Pulse Ox Pulse Ox Pulse Ox Pulse Ox 03/16/20 15:59 03/16/20 15:53 03/16/20 15:39 92 03/16/20 15:38 95 85 L 93 90 03/16/20 11:40 98 03/16/20 07:35 03/16/20 07:21 97 (1) Senile dementia Dementia behavioral disturbance: without behavioral disturbance Qualified Code(s): F03.90 - Unspecified dementia without behavioral disturbance (2) Deep vein thrombosis (DVT) of right lower extremity Affected thrombotic vein of extremity: femoral Chronicity: acute Qualified Code(s): I82.411 - Acute embolism and thrombosis of right femoral vein (3) Hypertension Hypertension type: essential hypertension Qualified Code(s): I10 - Essential (primary) hypertension (4) Fall Encounter type: initial encounter Qualified Code(s): W19.XXXA - Unspecified fall, initial encounter
[2020-03-17] MEDS ORDERED: ALENDRONATE SODIUM 70 MG TAB PO SCH (06:30)
[2020-03-17] MEDS: LEVOTHYROXINE SODIUM 50 MCG TABLET PO SCH (06:41)
[2020-03-17 07:11] LABS: Prothrombin Time 20.4 Seconds (9.0-12.0)
[2020-03-17] MEDS: DONEPEZIL HCL 5 MG TAB PO SCH (08:14)
[2020-03-17] MEDS: ESCITALOPRAM OXALATE 10 MG TAB PO SCH (08:15)
[2020-03-17] MEDS: PANTOprazole 40 MG TAB PO SCH (08:15)
[2020-03-17] MEDS: lisinopriL 5 MG TAB PO SCH (09:44)
--- NOTE | 2020-03-17 12:33 | Hospitalist Progress Note ---
Date of Service March 17, 2020 Assessment & Plan (1) Fall: Been having mechanical fall when her left knee gave way No loss of consciousness and no serious injury Has been feeling much better this morning Appreciate PT and OT evaluation-recommended home Medically stable to be discharged Strongly advised to take extra precaution to avoid falls (2) Hypoxia: Remote history of sleep apnea noted in epic but the patient is not aware CTA did not show any evidence of PE and/or infiltration Will have nocturnal pulse oximetry Remains stable and saturating well on room air Nocturnal pulse oximetry showed that she will require oxygen at nighttime To do steps O2 saturation recommended 2 L of nasal cannula oxygen continuously (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 Continue Aricept (4) Deep vein thrombosis (DVT) of right lower extremity: INR is 1.8 We will continue Coumadin (5) Osteoarthritis: Has osteoarthritic changes involving the hands and feet Occasional pain in the knee joint likely secondary to osteoarthritis No acute arthritis involving any joints (6) Hypertension: Blood pressure is upper side Lisinopril dose has been increased from 2.5 to 5 mg Blood pressure seems to be improving Can be discharged home this afternoon Admission and Anticipated Discharge Date Admission Date: March 15, 2020 Subjective The patient was seen and examined in the medical floor She is 84-year-old lady with significant past medical history including CKD, history of DVT and PE on Coumadin and was admitted with mechanical fall early this morning Complains some pain in the left knee but otherwise denies any symptoms No dizziness, blurred vision, pain in the palpitation before the fall and no loss of consciousness following fall 03/16/2020 Patient was seen and examined in medical floor She has been feeling a lot better and complains to have tiredness and fatigue Denies any significant pain and has been ambulating reasonably well 03/17/2020 The patient was seen and examined in the medical floor She remains a little drowsy but otherwise is stable She denies any other symptoms and she wants to go home Review of Systems Review of Systems: All systems reviewed and are unremarkable except as noted below Musculoskeletal: Minimal pain involving the left knee joint Neurologic: Generally weak but no focal sensory and motor deficit Physical Exam Physical Exam: Lying in bed without any acute distress Constitutional: well developed, well nourished and + obese; no acute distress and not ill appearing Eyes: PERRL, conjunctivae normal, anicteric sclerae ENMT: external ear and nose normal, oropharynx normal Neck: trachea midline, no thyromegaly Respiratory: normal respiratory effort; no respiratory distress Auscultation: lungs clear to auscultation bilaterally Cardiovascular: Rate/Rhythm: regular rate and regular rhythm Heart Sounds: no murmur Gastrointestinal (Abdomen): Inspection/Auscultation: abdomen normal to i nspection Percussion/Palpation: abdomen soft; abdomen nontender Musculoskeletal: No acute arthritis involving any joints Neurologic: moves all extremities; no focal motor deficits Pleasantly confused with generalized weakness Lymphatic: no cervical or axillary lymphadenopathy Results & Data Results & Data ([facility]) Vital Signs (Past 12 Hours) Vital Signs Temp Pulse Pulse Resp BP BP Pulse Ox 03/17/20 11:59 37.3 C 63 20 167/85 H 93 03/17/20 07:35 36.8 C 69 18 175/95 H 92 03/17/20 07:24 53 L 03/17/20 03:20 36.8 C 65 18 187/93 H 91 Medications Administered Current Inpatient Medications Acetaminophen (Tylenol) 650 mg PO Q4H PRN PRN Reason: Pain or Fever Stop: 04/14/20 05:23 Albuterol (Ventolin Hfa) 2 puffs INH DAILY PRN PRN Reason: Shortness Of Breath Stop: 04/14/20 05:23 Alendronate Sodium (Fosamax) 70 mg PO Sung@0630 [facility] Stop: 04/16/20 06:29 Last Admin: 03/17/20 06:39 Dose: 70 mg Documented by: Donepezil HCl (Aricept) 5 mg PO DAILY [facility] Stop: 04/14/20 08:59 Last Admin: 03/17/20 08:14 Dose: 5 mg Documented by: Escitalopram Oxalate (Lexapro Tab) 10 mg PO DAILY [facility] Stop: 04/14/20 08:59 Last Admin: 03/17/20 08:15 Dose: 10 mg Documented by: [facility]: 04/14/20 06:29 Last Admin: 03/17/20 06:41 Dose: 50 mcg Documented by: Lisinopril (Zestril) 5 mg PO DAILY [facility] Stop: 04/16/20 08:59 Last Admin: 03/17/20 09:44 Dose: 5 mg Documented by: Nitroglycerin (Nitrostat) 0.4 mg SL UD PRN PRN Reason: Chest Pain Stop: 04/14/20 05:23 Ondansetron HCl (Zofran) 4 mg IV Q6H PRN PRN Reason: Nausea Stop: 04/14/20 05:23 Pantoprazole Sodium (Protonix) 40 mg PO QAM [facility] Stop: 04/14/20 08:59 Last Admin: 03/17/20 08:15 Dose: 40 mg Documented by: Polyethylene Glycol (Miralax Powder Packet) 17 gm PO DAILY PRN PRN Reason: Constipation Stop: 04/14/20 05:23 Warfarin Sodium (Coumadin) 2 mg PO DAILY@1600 [facility] Stop: 04/14/20 15:59 Last Admin: 03/16/20 16:34 Dose: 2 mg Documented by: (1) Fall Encounter type: initial encounter Qualified Code(s): W19.XXXA - Unspecified fall, initial encounter (2) Senile dementia Dementia behavioral disturbance: without behavioral disturbance Qualified Co de(s): F03.90 - Unspecified dementia without behavioral disturbance (3) Deep vein thrombosis (DVT) of right lower extremity Affected thrombotic vein of extremity: femoral Chronicity: acute Qualified Code(s): I82.411 - Acute embolism and thrombosis of right femoral vein (4) Hypertension Hypertension type: essential hypertension Qualified Code(s): I10 - Essential (primary) hypertension
[2020-03-17] MEDS: WARFARIN SOD 2 MG TAB PO SCH (17:08)
[2020-03-18] MEDS: LEVOTHYROXINE SODIUM 50 MCG TABLET PO SCH (06:04)
[2020-03-18] MEDS: PANTOprazole 40 MG TAB PO SCH (07:21)
[2020-03-18] MEDS: ESCITALOPRAM OXALATE 10 MG TAB PO SCH (07:21)
[2020-03-18] MEDS: lisinopriL 5 MG TAB PO SCH (07:21)
[2020-03-18] MEDS: DONEPEZIL HCL 5 MG TAB PO SCH (07:21)
--- NOTE | 2020-03-18 12:39 | Hospitalist Progress Note ---
Date of Service March 18, 2020 Assessment & Plan (1) Fall: Been having mechanical fall when her left knee gave way No loss of consciousness and no serious injury Has been feeling much better this morning Appreciate PT and OT evaluation-recommended home Medically stable to be discharged Strongly advised to take extra precaution to avoid falls Denies any acute symptoms and she will be discharged this afternoon (2) Hypoxia: Remote history of sleep apnea noted in epic but the patient is not aware CTA did not show any evidence of PE and/or infiltration Will have nocturnal pulse oximetry Remains stable and saturating well on room air Nocturnal pulse oximetry showed that she will require oxygen at nighttime To do steps O2 saturation recommended 2 L of nasal cannula oxygen at night and with ambulation (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 Continue Aricept (4) Deep vein thrombosis (DVT) of right lower extremity: INR is 1.8 We will continue Coumadin INR is 2.0 as of 03/18/2020 She will have regular follow-up with the coagulation clinic (5) Osteoarthritis: Has osteoarthritic changes involving the hands and feet Occasional pain in the knee joint likely secondary to osteoarthritis No acute arthritis involving any joints (6) Hypertension: Blood pressure is upper side Lisinopril dose has been increased from 2.5 to 5 mg Blood pressure seems to be improving Can be discharged home this afternoon Blood pressure seems to be reasonably controlling Admission and Anticipated Discharge Date Admission Date: March 15, 2020 Subjective The patient was seen and examined in the medical floor She is 84-year-old lady with significant past medical history including CKD, history of DVT and PE on Coumadin and was admitted with mechanical fall early this morning Complains some pain in the left knee but otherwise denies any symptoms No dizziness, blurred vision, pain in the palpitation before the fall and no loss of consciousness following fall 03/16/2020 Patient was seen and examined in medical floor She has been feeling a lot better and complains to have tiredness and fatigue Denies any significant pain and has been ambulating reasonably well 03/17/2020 The patient was seen and examined in the medical floor She remains a little drowsy but otherwise is stable She denies any other symptoms and she wants to go home 03/18/2020 The patient was seen and examined in medical floor She has been feeling a lot better and remains generally weak Denies any acute symptoms She has been waiting for delivery of oxygen to her home before discharge Review of Systems Review of Systems: All systems reviewed and are unremarkable except as noted below Musculoskeletal: Minimal pain involving the left knee joint Neurologic: Generally weak but no focal sensory and motor deficit Physical Exam Physical Exam: Sitting on a chair without any acute distress Constitutional: well developed, well nourished and + obese; no acute distress and not ill appearing Eyes: PERRL, conjunctivae normal, anicteric sclerae ENMT: external ear and nose normal, oropharynx normal Neck: trachea midline, no thyromegaly Respiratory: normal respiratory effort; no respiratory distress Auscultation: lungs clear to auscultation bilaterally Cardiovascular: Rate/Rhythm: regular rate and regular rhythm Heart Sounds: no murmur Gastrointestinal (Abdomen): Inspection/Auscultation: abdomen normal to inspection Percussion/Palpation: abdomen soft; abdomen nontender Musculoskeletal: No acute arthritis involving any joints Neurologic: moves all extremities; no focal motor deficits Pleasantly confused and generally weak Lymphatic: no cervical or axillary lymphadenopathy Results & Data Results & Data ([facility]) Vital Signs (Past 12 Hours) Vital Signs Temp Pulse Pulse Resp BP Pulse Ox 03/18/20 11:59 36.8 C 67 18 163/83 H 97 03/18/20 07:18 36.8 C 72 18 183/93 H 97 03/18/20 03:30 36.9 C 67 20 154/75 H 95 03/18/20 02:00 63 Medications Administered Current Inpatient Medications Acetaminophen (Tylenol) 650 mg PO Q4H PRN PRN Reason: Pain or Fever Stop: 04/14/20 05:23 Albuterol (Ventolin Hfa) 2 puffs INH DAILY PRN PRN Reason: Shortness Of Breath Stop: 04/14/20 05:23 Alendronate Sodium (Fosamax) 70 mg PO Sung@0630 [facility] Stop: 04/16/20 06:29 Last Admin: 03/17/20 06:39 Dose: 70 mg Documented by: Donepezil HCl (Aricept) 5 mg PO DAILY [facility] Stop: 04/14/20 08:59 Last Admin: 03/18/20 07:21 Dose: 5 mg Documented by: Escitalopram Oxalate (Lexapro Tab) 10 mg PO DAILY [facility] Stop: 04/14/20 08:59 Last Admin: 03/18/20 07:21 Dose: 10 mg Documented by: Levothyroxine Sodium (Synthroid) 50 mcg PO DAILYBB [facility] Stop: 04/14/20 06:29 Last Admin: 03/18/20 06:04 Dose: 50 mcg Documented by: Lisinopril (Zestril) 5 mg PO DAILY [facility] Stop: 04/16/20 08:59 Last Admin: 03/18/20 07:21 Dose: 5 mg Documented by: Nitroglycerin (Nitrostat) 0.4 mg SL UD PRN PRN Reason: Chest Pain Stop: 04/14/20 05:23 Ondansetron HCl (Zofran) 4 mg IV Q6H PRN PRN Reason: Nausea Stop: 04/14/20 05:23 Pantoprazole Sodium (Protonix) 40 mg PO QAM [facility] Stop: 04/14/20 08:59 Last Admin: 03/18/20 07:21 Dose: 40 mg Documented by: Polyethylene Glycol (Miralax Powder Packet) 17 gm PO DAILY PRN PRN Reason: Constipation Stop: 04/14/20 05:23 Warfarin Sodium (Coumadin) 2 mg PO DAILY@1600 [facility] Stop: 04/14/20 15:59 Last Admin: 03/17/20 17:08 Dose: 2 mg Documented by: (1) Fall Encounter type: initial encounter Qualified Code(s): W19.XXXA - Unspecified fall, initial encounter (2) Senile dementia Dementia behavioral disturbance: without behavioral disturbance Qualified Code(s): F03.90 - Unspecified dementia without behavioral disturbance (3) Deep vein thrombosis (DVT) of right lower extremity Affected thrombotic vein of extremity: femoral Chronicity: acute Qualified Code(s): I82.411 - Acute embolism and thrombosis of right femoral vein (4) Hypertension Hypertension type: essential hypertension Qualified Code(s): I10 - Essential (primary) hypertension
--- NOTE | 2020-03-19 07:13 | Discharge Summary ---
Date of Service March 19, 2020 Admission HPI Per Admitting Provider DICTATED BY: Solomon Puga MD DATE OF ADMISSION: 03/15/2020 CHIEF COMPLAINT: Status post fall. HISTORY OF PRESENT ILLNESS: This is an 84-year-old female with past medical history significant for hypothyroidism, hyperlipidemia, prediabetes, allergic rhinitis, history of bilateral DVT and small PE, hypertension, chronic kidney disease stage III, GERD, vitamin D deficiency, nephrolithiasis, osteoarthritis of the knees, essential tremor, Alzheimer disease, who lives with her son, was brought in because of fall. The patient says she was in the kitchen table when she lost balance and fell backwards and hit the back of the head, no loss of consciousness. She was able to get up. She uses walker for ambulation and she called one of the daughters and she was brought in here. The patient is currently hemodynamically stable, somewhat hard of hearing. Daughter is in the room who assisted with H and P. The patient says she has some soreness in the back of the head, some soreness in the tailbone. Imaging studies in the ER were unremarkable. The patient was having some hypoxia on room air in the ER and in the CAT scan room also she was 83% on room air, that is why we were called for admission. With oxygen she is saturating fine. Denies any chest pain, occasional cough which is chronic. She is always short of breath. No chest pain, no fever, no chills, no headache, no blurred vision, no runny nose, no sore throat, no difficulty swallowing. She is on a regular diet. Appetite is okay. No nausea, no abdominal pain. Normal bowel and bladder movements. There is diagnosis of obstructive sleep apnea on the Epic chart, but as per daughter, she was never tested. She has a history of Lisfranc fracture. She used to use brace but she is no longer using it. Admission Exam Per Admitting Provider GENERAL: The patient is old and frail, not in acute distress. VITAL SIGNS: Temperature 37, pulse 80, respiratory rate 24, blood pressure 177/95, oxygen 95% on 2 liters, currently 83% on room air. HEENT: No pallor, no icterus. Pupils equal, round, reactive to light. NECK: No JVD, no neck masses, no carotid bruits. CARDIOVASCULAR: S1, S2 heard, regular rate and rhythm, no murmur, no gallop. RESPIRATORY SYSTEM: Normal AP diameter. No accessory muscle use. No wheezing, no crackles. ABDOMEN: Soft, bowel sounds present, nontender. No distention. CENTRAL NERVOUS SYSTEM: Cranial nerves II-XII grossly intact, nonfocal. EXTREMITIES: No edema, no erythema. Principal Diagnosis Mechanical fall without significant injury, hypoxemia with remote history of sleep apnea, senile dementia, history of DVT on Coumadin, osteoarthritis Discharge Exam Constitutional well developed, well nourished and + obese; no acute distress and not ill appearing Eyes PERRL, conjunctivae normal, anicteric sclerae ENMT external ear and nose normal, oropharynx normal Neck trachea midline, no thyromegaly Respiratory normal respiratory effort; no respiratory distress Auscultation: lungs clear to auscultation bilaterally Cardiovascular Rate/Rhythm: regular rate and regular rhythm Heart Sounds: no murmur Gastrointestinal (Abdomen) Inspection/Auscultation: abdomen normal to inspection Percussion/Palpation: abdomen soft; abdomen nontender Neurologic moves all extremities; no focal motor deficits Lymphatic no cervical or axillary lymphadenopathy Discharge Data Allergies Allergy/AdvReac Type Severity Reaction Status Date / Time rosuvastatin Allergy Severe ITCHY Verified 03/14/20 23:57 Consultations 03/15/20 03:30 ED Decision to Admit Stat 03/15/20 05:24 Consult Case Management - Discharge Planning Routine 03/17/20 13:18 Consult Case Management - Discharge Planning Routine Ordered Studies 03/14/20 23:19 CT cervical spine wo con Urgent CT head/brain wo con Urgent 03/15/20 01:12 CT angio chest PE protocol Urgent Hospital Course (1) Fall: Been having mechanical fall when her left knee gave way No loss of consciousness and no serious injury Has been feeling much better this morning Appreciate PT and OT evaluation-recommended home Medically stable to be discharged Strongly advised to take extra precaution to avoid falls Denies any acute symptoms and she will be discharged this afternoon (2) Hypoxia: Remote history of sleep apnea noted in epic but the patient is not aware CTA did not show any evidence of PE and/or infiltration Will have nocturnal pulse oximetry Remains stable and saturating well on room air Nocturnal pulse oximetry showed that she will require oxygen at nighttime To do steps O2 saturation recommended 2 L of nasal cannula oxygen at night and with ambulation (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 Continue Aricept (4) Deep vein thrombosis (DVT) of right lower extremity: INR is 1.8 We will continue Coumadin INR is 2.0 as of 03/18/2020 She will have regular follow-up with the coagulation clinic (5) Osteoarthritis: Has osteoarthritic changes involving the hands and feet Occasional pain in the knee joint likely secondary to osteoarthritis No acute arthritis involving any joints (6) Hypertension: Blood pressure is upper side Lisinopril dose has been increased from 2.5 to 5 mg Blood pressure seems to be improving Can be discharged home this afternoon Blood pressure seems to be reasonably controlling Total Time Total Time Spent Total Time Spent (In Minutes): 35 minutes Total Time Includes: Examination of the Patient, Discharge Planning, Medication Reconciliation and Communication With Other Providers Discharge Plan Discharge Items Patient Disposition: Home - Home Health Services Reason For Visit: FALL Discharge Diagnosis: Mechanical fall without significant injury, hypoxemia with remote history of sleep apnea, senile dementia, history of DVT on Coumadin, osteoarthritis Condition on Discharge: Fair Activity: Resume your previous activity Non-emergency contact: Primary Care Provider Call non-emergency contact if: you have any medication questions and your symptoms worsen Follow-up/Referrals: Nancy Mackey MD [Primary Care Provider] - 03/22/20 12:00 pm (03/22/2020 12:00 PM Provider Nancy Mackey MD Department Internal Medicine [facility] Please keep regular follow-up appointments with Coumadin clinic ) Diet: Carb Consistent or DM2 and Heart Healthy Addtl Attending Provider Instructions: Please take extra precaution to avoid falls Please have regular checkup at the coagulation clinic You will need oxygen at a rate of 2 L/min via nasal cannula while sleeping and with activity You are advised to have a sleep study done as an outpatient through your PCP Pending Studies at Discharge: No Stand-Alone Forms: My [employer], Smoking Cessation Medications and DC Order Prescriptions: New lisinopril [Zestril] 5 mg Tablet 5 mg PO DAILY 30 Days Qty: 30 RF: 0 Continued alendronate [Fosamax] 70 mg Tablet 70 mg PO WK RF: 0 polyethylene glycol 3350 [Miralax] 17 gram powder in packet 17 g PO UD PRN (Reason: constipation) RF: 0 acetaminophen [Pain Reliever] 500 mg tablet 500 mg PO Q4HWA PRN (Reason: Pain) RF: 0 donepezil [Aricept] 5 mg Tablet 5 mg PO DAILY RF: 0 levothyroxine 50 mcg tablet 50 mcg PO DAILYBB RF: 0 omeprazole 20 mg capsule,delayed release(DR/EC) 20 mg PO QAM RF: 0 albuterol sulfate 90 mcg/actuation HFA aerosol inhaler 2 puff Inhalation UD PRN (Reason: Shortness Of Breath) RF: 0 warfarin 1 mg Tablet 2 mg PO UD RF: 0 escitalopram oxalate 10 mg tablet 10 mg PO DAILY RF: 0 Discontinued lisinopril 2.5 mg tablet 2.5 mg PO DAILY RF: 0 Discharge Orders: Discharge Order (Routine); Ordered 03/18/20 Ordered By: Allison Burciaga/Other Patient Handouts: A1C Admission Data Admit Date/Time: 03/15/20 03:58 Attending Provider: Allison Vanegas Admit Provider: Solomon Puga Primary Care Provider: Nancy Mackey Other Providers: Solomon Puga Other Interventions: Discharge Summary Assessment (RN) Last Done: 03/18/20 12:51 DC Date/Time DO NOT enter until pt leaves facility: 03/18/20 15:35
== END 2020-03-18 15:35 | disposition home health service (06) | DRG 206 ==
LOC: ED 22:44 → 2W 03-15 03:58